=== PATIENT | female | born 1960 | race Caucasian/White ===

== ENCOUNTER 2018-08-23 17:03 | Inpatient (IN) | payer OTHER ==
--- OUTSIDE RECORDS SUMMARY | 2018-08-23 17:06 | XMS REPORT ---
:1960 [facility] Address [address] [place] [address] [address] Care Team Providers Name Role Phone DR CALDERON NAPIER Unavailable Unavailable Problems This patient has no known problems. Allergies, Adverse Reactions, Alerts This patient has no known allergies or adverse reactions. Medications This patient has no known medications. Encounters Start End Encounter Admission Attending Care Care Encounter Date/Time Date/Time Type Type Clinicians Facility Department ID 2017-11-14 Inpatient CALDERON MARTINEZ [facility] [id number] 09:00:00
--- OUTSIDE RECORDS SUMMARY | 2018-08-23 17:06 | XMS REPORT | Continuity of Care Document ---
:1960 Author Organization Interface Problems Problem Status Onset Classification Date Comments Source Date Reported IDIOPATHIC Active [facility] ASE[facility] NECROSIS [address] [facility] OF LEFT FEMU Arthritis Active Problem 11/17/2017 [facility] Hypertension Active Problem 11/17/2017 [facility] Medications Medication Details Route Status Patient Ordering Order Source Instructions Provider Date propofol (ANES) Route: Inactive IV, Drug 018 Ortho form: and INJ, Spine ONCE, Stop date: 11/14/17 11:05:00 CDT lidocaine (ANES) Route: Inactive IV, Drug 018 Ortho form: and INJ, Spine ONCE, Stop date: 11/14/17 10:45:00 CDT propofol (ANES) Route: Inactive IV, Drug 018 Ortho form: and INJ, Spine ONCE, Stop date: 11/14/17 10:45:00 CDT fentaNYL (ANES) Route: Inactive IV, Drug 018 Ortho form: and INJ, Spine ONCE, Stop date: 11/14/17 10:23:00 CDT midazolam (ANES) Route: Inactive IV, Drug 018 Ortho form: and SOLN, Spine ONCE, Stop date: 11/14/17 10:23:00 CDT Lactated Ringers Route: Inactive Injection IV (ANES) IV, Total 018 Ortho 1000 mL Volume: and 1,000, Spine Start date: 11/14/17 10:03:00 CDT, Stop date: 11/14/17 11:03:00 CDT Lactated Ringers IV 1,000 mL, No Longer 1,000 mL Rate: 40 Active 018 Ortho ml/hr, and Infuse Spine over: 25 hr, Route: IV, Dosing Weight 78.182 kg, Total Volume: 1,000, Start date: 11/14/17 8:45:00 CDT, Duration: 30 day, Stop date: 05/13/18 8:44:00 CDT, 1.95, m2 Tums 500 mg, Active CHEW, 018 Ortho Daily, 0 and Refill(s) Spine Advil PO, Q6H, Active MH 0 018 Ortho Refill(s) and Spine Aspirin 325 MG Oral 975 mg=3 Active Tablet tab, PO, 018 Ortho Q4H, PRN and Pain, # Spine 120 tab, 0 Refill(s) Acetaminophen 325 MG 1 tab, Active MH / Hydrocodone PO, Q6H, 018 Ortho Bitartrate 10 MG Oral PRN for and Tablet [Norman 10/325] pain, # Spine 24 tab, 0 Refill(s) gabapentin 600 MG 600 mg=1 Active Oral Tablet tab, PO, 018 Ortho PRN, # and 270 tab, Spine 0 Refill(s) baclofen 10 mg oral 10 mg=1 Active tablet tab, PO, 018 Ortho TID, PRN and Spasms, # Spine 90 tab, 0 Refill(s) Amlodipine 10 MG Oral 10 mg=1 Active Tablet [Norvasc] tab, PO, 018 Ortho Daily, # and 30 tab, 1 Spine Refill(s) Hydrochlorothiazide 1 tab, Active MH 25 MG / Triamterene PO, 018 Ortho 37.5 MG Oral Tablet Daily, # and 15 tab, 0 Spine Refill(s) carvedilol 25 MG Oral 25 mg=1 Active Tablet [Coreg] tab, PO, 018 Ortho BID, # 60 and tab, 0 Spine Refill(s) Allergies, Adverse Reactions, Alerts Substance Category Reaction Severity Reaction Status Date Comments Source type Reported sulfa Assertion Drug Active rash MH drugs<sup>1 allergy Ortho </sup> and Spine quinapril<s Assertion Drug Active rash MH up>2</sup> allergy [facility] Immunizations Immunization Date Given Site Status Last Updated Comments Source Results Order Results Value Reference Date Interpretation Comments Source Name Range Vital Signs Vital Sign Value Date Comments Source Systolic (mm Hg) 131 11/14/2017 [facility] Diastolic (mm Hg) 69 11/14/2017 [facility] Respitory Rate 16 11/14/2017 [facility] Heart Rate 70 11/14/2017 [facility] Systolic (mm Hg) 126 11/14/2017 [facility] Diastolic (mm Hg) 61 11/14/2017 [facility] Heart Rate 71 11/14/2017 [facility] Respitory Rate 15 11/14/2017 [facility] Respitory Rate 12 11/14/2017 [facility] Heart Rate 72 11/14/2017 [facility] Systolic (mm Hg) 117 11/14/2017 [facility] Diastolic (mm Hg) 77 11/14/2017 [facility] BMI Calculated 25.51 11/14/2017 [facility] Weight 75 11/14/2017 [facility] Temperature Oral (F) 97.9 F 11/14/2017 [facility] Height 171.45 cm 11/12/2017 [facility] Encounters Location Location Encounter Encounter Reason Attending ADM DC Status Source Details Type Number For Provider Date Date Visit [id number] Marc Jefferson 11/14 11/15 [facility] /2017 [facility] Procedures Procedure Code Date Perfomer Comments Source Injection [id number] 11/14/2017 [facility] Hip [id number] 08/04/2015 right [facility] Ortho and replacement<sup>1</ Spine sup> Lumpectomy of [id number] 08/04/2015 right breast Ortho and breast<sup>2</sup> Spine Hysterectomy [id number] [facility]
[2018-08-23 18:15] LABS: Absolute Lymphocytes (CBC) 0.9 K/uL (0.7-4.9); Absolute Monocytes 1.5 K/uL (0.1-1.3); Absolute Neutrophil 6.7 K/uL (1.8-8.0); Basophils % 0.5 % (0-1.3); Eosinophils % 0.4 % (0-4.4); MPV 8.5 fL (7.6-11.3); Monocytes % 16.8 % (3.3-12.3); RBC Red Blood Cell Count 4.49 M/uL (3.86-4.86)
[2018-08-23 18:16] LABS: Protime INR 0.91
--- NOTE | 2018-08-23 18:38 | RAD REPORT ---
EXAM DESCRIPTION: CT - Head Brain Wo Cont - 08/23/2018 6:13 pm CLINICAL HISTORY: Weakness, dizziness, near syncope COMPARISON: None. TECHNIQUE: Axial 5 mm thick images of the head were obtained without IV contrast. All CT scans are performed using dose optimization technique as appropriate and may include automated exposure control or mA/KV adjustment according to patient size. FINDINGS: No intracranial hemorrhage, mass, edema or shift of mid-line structures. No acute infarcti on changes seen. No abnormal extra-axial fluid collections. Ventricles are normal. Mastoid air cells and visualized portions of the paranasal sinuses are clear. No acute bony findings. Minimal soft tissue prominence in the scalp fatty tissues posterior parietal. No fall or trauma histo ry noted. This could be scarring from a prior injury. This is not seen as significant. No air or fore ign body. IMPRESSION: Negative non-contrast CT head examination for acute or significant finding.
[2018-08-23 18:39] LABS: ALT/SGPT 15 U/L (12-78); AST/SGOT 14 U/L (15-37); Albumin 3.9 g/dL (3.4-5.0); Alkaline Phosphatase 126 U/L (45-117); BUN Blood Urea Nitrogen 27 mg/dL (7-18); Bicarbonate 35 mmol/L (21-32); Bilirubin Direct 0.1 mg/dL (0-0.2); Bilirubin Total 0.3 mg/dL (0.2-1.0); Glucose Level 124 mg/dL (74-106); Magnesium 2.3 mg/dL (1.8-2.4); NT PRO-BNP 108 pg/mL (<125); Protein, Total 7.9 g/dL (6.4-8.2); Troponin (Emerg Dept Use Only) < 0.02 ng/mL (0.0-0.045)
[2018-08-23 18:42] LABS: Potassium 2.6 mmol/L (3.5-5.1); Sodium Level 118 mmol/L (136-145)
--- NOTE | 2018-08-23 18:48 | EDPHYS ---
Physician Documentation [facility] Name: Carla Cohen Age: 57 yrs Sex: Female : 1960 Arrival Date: 08/23/2018 Time: 17:05 Bed 8 Private MD: Jewels Richardson ED Physician Michael Lei HPI: 08/23 18:02 This 57 yrs old Female presents to ER via Wheelchair with complaints of Fall tw4 Injury, Dizziness, Nausea. 18:02 Details of fall: The patient fell from an upright position, while standing, while tw4 walking. Onset: The symptoms/episode began/occurred 1 week(s) ago. Associated injuries: The patient sustained no obvious injury. Severity of symptoms: At their worst the symptoms were moderate, in the emergency department the symptoms are unchanged. The patient has not experienced similar symptoms in the past. Historical: - Allergies: 17:13 NKDA; aj - Home Meds: 17:13 carvedilol 25 mg Oral tab 1 tab 2 times per day [Active]; hydrocodone-acetaminophen aj 10-325 mg Oral tab every 6 hours [Active]; amlodipine 10 mg tab 1 tab once daily [Active]; doxazosin 2 mg oral tab 1 tab once daily [Active]; Potassium Chloride Oral [Active]; furosemide 20 mg Oral tab 1 tab once daily [Active]; meloxicam 7.5 mg oral tab 1 tab once daily [Active]; montelukast 10 mg Oral tab 1 tab once daily [Active]; - PMHx: 17:13 Hypertension; Arthritis; aj - PSHx: 17:13 Hysterectomy; cyst removal; Tonsillectomy; hip; aj - Immunization history:: Adult Immunizations up to date. - Social history:: Smoking status: Patient/guardian denies using tobacco. - Ebola Screening: : Patient negative for fever greater than or equal to 101.5 degrees Fahrenheit, and additional compatible Ebola Virus Disease symptoms Patient denies exposure to infectious person Patient denies travel to an Ebola-affected area in the 21 days before illness onset No symptoms or risks identified at this time. ROS: 18:02 Constitutional: Negative for fever, chills, and weight loss, Eyes: Negative for injury, tw4 pain, redness, and discharge, Cardiovascular: Negative for chest pain, palpitations, and edema, Respiratory: Negative for shortness of breath, cough, wheezing, and pleuritic chest pain, Abdomen/GI: Negative for abdominal pain, nausea, vomiting, diarrhea, and constipation. 18:02 Neuro: Positive for dizziness, Negative for altered mental status, gait disturbance, headache, hearing loss, numbness, seizure activity, speech changes, tinnitus, tremor. Exam: 18:02 Constitutional: This is a well developed, well nourished patient who is awake, alert, tw4 and in no acute distress. Head/Face: Normocephalic, atraumatic. Chest/axilla: Normal chest wall appearance and motion. Nontender with no deformity. No lesions are appreciated. Cardiovascular: Regular rate and rhythm with a normal S1 and S2. No gallops, murmurs, or rubs. Normal PMI, no JVD. No pulse deficits. Respiratory: Lungs have equal breath sounds bilaterally, clear to auscultation and percussion. No rales, rhonchi or wheezes noted. No increased work of breathing, no retractions or nasal flaring. Abdomen/GI: Soft, non-tender, with normal bowel sounds. No distension or tympany. No guarding or rebound. No evidence of tenderness throughout. 18:02 MS/ Extremity: Pulses equal, no cyanosis. Neurovascular intact. Full, normal range of motion. Neuro: Awake and alert, GCS 15, oriented to person, place, time, and situation. Cranial nerves II-XII grossly intact. Motor strength 5/5 in all extremities. Sensory grossly intact. Cerebellar exam normal. Normal gait. Vital Signs: 17:13 BP 91 / 60; Pulse 85; Resp 16; Temp 97.6; Pulse Ox 100% on R/A; Weight 74.84 kg; Height aj 5 ft. 7 in. (170.18 cm); 17:30 BP 113 / 78; Pulse 74; Resp 14; Pulse Ox 98% on R/A; Pain 8/10; ch 18:30 BP 98 / 76; Pulse 84; Resp 16; Pulse Ox 98% on R/A; Pain 8/10; ch 20:41 BP 115 / 71; Pulse 76; Resp 18; Pulse Ox 96% on R/A; tl2 17:13 Body Mass Index 25.84 (74.84 kg, 170.18 cm) aj 17:30 pt c/o chronic hip pain ch MDM: 17:18 Patient medically screened. tw4 18:02 Differential diagnosis: abrasion, closed head injury. Data reviewed: vital signs, tw4 nurses notes. Data interpreted: Pulse oximetry: Interpretation: normal. Test interpretation: by ED physician or midlevel provider: ECG. 08/23 17:50 Order name: Basic Metabolic Panel tw4 08/23 17:50 Order name: CBC with Diff tw4 08/23 17:50 Order name: LFT's tw4 08/23 17:50 Order name: Magnesium tw4 08/23 17:50 Order name: NT PRO-BNP tw4 08/23 17:50 Order name: PT-INR tw4 08/23 17:50 Order name: Troponin (emerg Dept Use Only) tw4 08/23 18:23 Order name: CBC with Automated Diff EDMS 08/23 18:25 Interpretation: Normal except: MCV 82.4; RDW 19.7. tw4 08/23 18:34 Order name: Protime (+INR); Complete Time: 18:48 EDMS 08/23 18:48 Interpretation: Within normal limits: PT 10.7. tw4 08/23 18:42 Order name: Basic Metabolic Panel; Complete Time: 18:49 EDMS 08/23 18:49 Interpretation: Normal except: K 2.6; NA 118; CL 71; CO2 35; GLUC 124; GFR 29; CRE tw4 1.79; BUN 27. 08/23 18:42 Order name: Liver (Hepatic) Function; Complete Time: 18:48 EDMS 08/23 18:48 Interpretation: Normal except: AST 14; ALK 126; GLOB 4.0; A/G 1.0. tw4 08/23 18:42 Order name: Troponin (Emerg Dept Use Only); Complete Time: 18:48 EDMS 08/23 18:48 Interpretation: Within normal limits: TROPED < 0.02. tw4 08/23 18:42 Order name: NT PRO-BNP; Complete Time: 18:48 EDMS 08/23 18:48 Interpretation: Within normal limits: NT PRO-BNP 108. tw4 08/23 18:42 Order name: Magnesium; Complete Time: 18:48 EDMS 08/23 18:48 Interpretation: Within normal limits. tw4 08/23 17:50 Order name: EKG; Complete Time: 17:51 tw4 08/23 17:50 Order name: Cardiac monitoring; Complete Time: 20:00 tw4 08/23 17:50 Order name: EKG - Nurse/Tech; Complete Time: 19:10 4 08/23 17:50 Order name: IV Saline Lock; Complete Time: 19:10 4 08/23 17:50 Order name: Labs collected and sent; Complete Time: 19:10 [facility] 08/23 17:50 Order name: O2 Per Protocol; Complete Time: 19:10 4 08/23 17:50 Order name: O2 Sat Monitoring; Complete Time: 19:10 tw4 08/23 17:50 Order name: CT Head Brain wo Cont tw 08/23 18:39 Order name: CT; Complete Time: 18:40 EDMS 08/23 18:41 Interpretation: No acute disease. [facility] 08/23 18:48 Order name: Urine Dipstick-Ancillary (obtain specimen); Complete Time: 20:36 [facility] 08/23 19:07 Order name: CBC Smear Scan [facility] 08/23 20:43 Order name: Urine Dipstick--Ancillary (enter results) 08/23 20:50 Order name: Urine Dipstick-Ancillary ED[facility] EC:02 Rhythm is regular. QRS [place] is Normal. AL interval is normal. QRS interval is normal. tw4 QT interval is normal. No Q waves. T waves are Inverted in leads V1, V2, V3. No ST changes noted. Clinical impression: Abnormal EKG without significant change. Interpreted by me. Reviewed by me. Administered Medications: 20:09 Not Given (Do not have in hospital): NS 0.9% with KCl 40 mEq/L 1000 ml IV at calculated tl2 rate continuous Disposition: 08/23/18 18:47 Hospitalization ordered by Jesus Lord for Inpatient Admission. Preliminary diagnosis are Hypo-osmolality and hyponatremia, Hypokalemia, Dizziness and giddiness. - Bed requested for Telemetry/MedSurg (Inpatient). - Status is Inpatient Admission. ea - Condition is Fair. - Problem is new. - Symptoms are unchanged. UTI on Admission? No Signatures: Dispatcher [employer] [facility] Amber Sutton RN RN mw Myers, Amanda, RN RN aj Antunez, Elena, RN RN ea Wadley, Terrence, MD MD tw4 Gilliam, Sharon RN tl2 Corrections: (The following items were deleted from the chart) 20:00 18:47 Hospitalization Ordered by Jesus Lord MD for Inpatient Admission. Preliminary mw diagnosis is Hypo-osmolality and hyponatremia; Hypokalemia; Dizziness and giddiness. Bed requested for Telemetry/MedSurg (Inpatient). Status is Inpatient Admission. Condition is Fair. Problem is new. Symptoms are unchanged. UTI on Admission? No. tw4 21:26 20:00 08/23/2018 18:47 Hospitalization Ordered by Jesus Lord MD for Inpatient ea Admission. Preliminary diagnosis is Hypo-osmolality and hyponatremia; Hypokalemia; Dizziness and giddiness. Bed requested for Telemetry/MedSurg (Inpatient). Status is Inpatient Admission. Condition is Fair. Problem is new. Symptoms are unchanged. UTI on Admission? No. mw
--- NOTE | 2018-08-23 18:48 | ER ---
Nurse's Notes [facility] Name: Carla Cohen Age: 57 yrs Sex: Female : 1960 Arrival Date: 08/23/2018 Time: 17:05 Bed 8 Private MD: Jewels Richardson Diagnosis: Hypo-osmolality and hyponatremia;Hypokalemia;Dizziness and giddiness Presentation: 08/23 17:10 Presenting complaint: Patient states: Dizziness with nausea and vomiting for 4 days. aj Worse with movement. Transition of care: patient was not received from another setting of care. Onset of symptoms was August 19, 2018. Risk Assessment: Do you want to hurt yourself or someone else? Patient reports no desire to harm self or others. Initial Sepsis Screen: Does the patient meet any 2 criteria? No. Patient's initial sepsis screen is negative. Does the patient have a suspected source of infection? No. Patient's initial sepsis screen is negative. Care prior to arrival: None. 17:10 Method Of Arrival: Wheelchair aj 17:10 Acuity: DAI 3 aj Triage Assessment: 17:13 General: Appears in no apparent distress. comfortable, Behavior is calm, cooperative, aj appropriate for age. Pain: Denies pain. Neuro: Level of Consciousness is awake, alert, obeys commands, Oriented to person, place, time, situation, Appropriate for age Ase Certified Technician are equal bilaterally Moves all extremities. Speech is normal, Facial symmetry appears normal. Respiratory: Airway is patent Respiratory effort is even, unlabored, Respiratory pattern is regular, symmetrical. Derm: Skin is intact, is healthy with good turgor, Skin is pink, warm \T\ dry. normal. Historical: - Allergies: 17:13 NKDA; aj - Home Meds: 17:13 carvedilol 25 mg Oral tab 1 tab 2 times per day [Active]; hydrocodone-acetaminophen aj 10-325 mg Oral tab every 6 hours [Active]; amlodipine 10 mg tab 1 tab once daily [Active]; doxazosin 2 mg oral tab 1 tab once daily [Active]; Potassium Chloride Oral [Active]; furosemide 20 mg Oral tab 1 tab once daily [Active]; meloxicam 7.5 mg oral tab 1 tab once daily [Active]; montelukast 10 mg Oral tab 1 tab once daily [Active]; - PMHx: 17:13 Hypertension; Arthritis; aj - PSHx: 17:13 Hysterectomy; cyst removal; Tonsillectomy; hip; aj - Immunization history:: Adult Immunizations up to date. - Social history:: Smoking status: Patient/guardian denies using tobacco. - Ebola Screening: : Patient negative for fever greater than or equal to 101.5 degrees Fahrenheit, and additional compatible Ebola Virus Disease symptoms Patient denies exposure to infectious person Patient denies travel to an Ebola-affected area in the 21 days before illness onset No symptoms or risks identified at this time. Screenin:30 Abuse screen: Denies threats or abuse. Denies injuries from another. Nutritional ch screening: No deficits noted. Tuberculosis screening: No symptoms or risk factors identified. Fall Risk Fall in past 12 months (25 points). Secondary diagnosis (15 points) Ambulatory Aid- None/Bed Rest/Nurse Assist (0 pts). Gait- Weak (10 pts.). Mental Status- Oriented to own ability (0 pts). Total Garcia Fall Scale indicates Low Risk Score (25-44 pts). Fall prevention measures have been instituted. Side Rails Up X 2 Frequent Obs/Assesments occuring Family Present and informed to notify staff if they need to leave bedside As available Patient and Family Educated on Fall Prevention Program and strategies. Assessment: 17:30 General: Appears in no apparent distress. comfortable, Behavior is calm, cooperative, ch quiet. Pain: Complains of pain in left hip Pain currently is 8 out of 10 on a pain scale. Pain began years ago. Neuro: Level of Consciousness is awake, alert, obeys commands, Oriented to person, place, time, situation, Ase Certified Technician are equal bilaterally Moves all extremities. Gait is unsteady, Speech is normal, Facial symmetry appears normal, Facial symmetry: tongue is midline, Pupils are PERRLA. Respiratory: No deficits noted. GI: Reports nausea, vomiting. : No signs and/or symptoms were reported regarding the genitourinary system. Derm: Skin is pink, warm \T\ dry. Musculoskeletal: Circulation, motion, and sensation intact. Capillary refill < 3 seconds, in bilateral fingers. Reports pain in left hip. 18:30 Reassessment: Patient appears in no apparent distress at this time. Patient and/or ch family updated on plan of care and expected duration. Pain level reassessed. Patient is alert, oriented x 3, equal unlabored respirations, skin warm/dry/pink. pt asks if she can take her home Ariel. physician states he will be in the room soon to discuss results with pt. 20:25 Reassessment: received VO from Dr. Sheets to give 40 meq of potassium in rider bags. tl2 Order placed in [employer] and will communicate with nurse. Vital Signs: 17:13 BP 91 / 60; Pulse 85; Resp 16; Temp 97.6; Pulse Ox 100% on R/A; Weight 74.84 kg; Height aj 5 ft. 7 in. (170.18 cm); 17:30 BP 113 / 78; Pulse 74; Resp 14; Pulse Ox 98% on R/A; Pain 8/10; ch 18:30 BP 98 / 76; Pulse 84; Resp 16; Pulse Ox 98% on R/A; Pain 8/10; ch 20:41 BP 115 / 71; Pulse 76; Resp 18; Pulse Ox 96% on R/A; tl2 17:13 Body Mass Index 25.84 (74.84 kg, 170.18 cm) aj 17:30 pt c/o chronic hip pain ED Course: 17:05 Patient arrived in ED. mr 17:06 Jewels Richardson MD is Private Physician. mr 17:11 Triage completed. aj 17:13 Arm band placed on left wrist. Patient placed in an exam room. aj 17:18 Christin Jarrell, RN is Primary Nurse. ch 17:18 Michael Lei MD is Attending Physician. tw4 17:30 No apparent distress. Resting quietly. ch 17:30 Patient has correct armband on for positive identification. Bed in low position. Call light in reach. Side rails up X2. Adult w/ patient. Pulse ox on. NIBP on. Warm blanket given. 18:00 No provider procedures requiring assistance completed. Inserted saline lock: 22 gauge ch in left forearm, using aseptic technique. Blood collected. 18:07 CT completed. Patient moved to CT via stretcher. Patient moved back from CT. bq 18:42 Notified ED physician of a critical lab result(s). 118 Na, 2.6 K, 71 Cl. aa5 18:46 Jesus Lord MD is Hospitalizing Provider. tw4 19:10 Report given to Susnaa. ch 21:05 Patient admitted, IV remains in place. ea Administered Medications: 20:09 Not Given (Do not have in hospital): NS 0.9% with KCl 40 mEq/L 1000 ml IV at calculated tl2 rate continuous Outcome: 18:47 Decision to Hospitalize by Provider. tw4 19:00 Instructed on the need for admit. ea 21:05 Condition: stable ea 21:26 Patient left the ED. ea Signatures: Christin Jarrell, RN Ansley Wallace ch, RN Anna Mac mr Sashacris, Jhoana Robles, RN RN aa5 Sharon Gilliam RN JOSE JUAN tl2 Kayla Miranda RN Michael Mancia ea, MD MD tw4 Corrections: (The following items were deleted from the chart) 21:05 19:00 Condition: stable ea ea
[2018-08-23 19:06] LABS: Anisocytosis 1+; Blood Morphology Comment NOTED (NOT SEEN); Platelet Estimate ADEQ; Urine White Blood Cell Casts OK
[2018-08-23] MEDS ORDERED: ONDANSETRON 4 MG/2 ML VIAL IV PRN (19:56)
[2018-08-23] MEDS ORDERED: MORPHINE 2 MG/ML SYR IV PRN (19:56)
[2018-08-23] MEDS ORDERED: ACETAMINOPHEN 500 MG TAB PO PRN (19:56)
[2018-08-23] MEDS ORDERED: NA CHLORIDE 0.9% 500 ML ONE (20:48)
[2018-08-23 20:49] LABS: Urine Blood NEGATIVE (NEG); Urine Glucose NEGATIVE (NEG); Urine Protein NEGATIVE (NEG); Urine pH 5.5 (5.0-7.0)
[2018-08-23] MEDS ORDERED: KCL 20 MEQ/100 mL IVPB 20 MEQ/100 ML BAG IV ONE (20:49)
[2018-08-23] MEDS ORDERED: POTASSIUM CL 40 MEQ in NA CHLORIDE 0.9% 500 ML IV SCH (21:00)
[2018-08-23] MEDS: NA CHLORIDE 0.9% 1,000 ML IV SCH (21:20)
[2018-08-24 01:12] LABS: Potassium 2.7 mmol/L (3.5-5.1)
[2018-08-24] MEDS: KCL 20 MEQ/100 mL IVPB 20 MEQ/100 ML BAG IV SCH ×2 (01:58→03:50)
[2018-08-24 04:03] LABS: Urine Appearance CLEAR; Urine Bilirubin NEGATIVE (NEG); Urine Blood NEGATIVE (NEG); Urine Color YELLOW; Urine Glucose NEGATIVE (NEG); Urine Protein NEGATIVE (NEG); Urine Urobilinogen 0.2 mg/dL (0.2-1.0)
[2018-08-24 04:04] LABS: Urine Microscopic Reflex NO UMIC
[2018-08-24] MEDS: NA CHLORIDE 0.9% 1,000 ML IV SCH ×2 (06:00→11:09)
[2018-08-24 06:17] LABS: Absolute Lymphocytes (CBC) 1.8 K/uL (0.7-4.9); Absolute Monocytes 1.2 K/uL (0.1-1.3); Absolute Neutrophil 2.6 K/uL (1.8-8.0); Basophils % 0.3 % (0-1.3); Eosinophils % 1.7 % (0-4.4); Hematocrit 31.2 % (36.0-45.0); Lymphocytes % 32.2 % (15.3-44.8); MPV 8.3 fL (7.6-11.3); Monocytes % 20.7 % (3.3-12.3); RBC Red Blood Cell Count 3.76 M/uL (3.86-4.86)
[2018-08-24 06:35] LABS: Potassium 2.9 mmol/L (3.5-5.1)
[2018-08-24 06:51] LABS: Anisocytosis 1+; Blood Morphology Comment NOTED (NOT SEEN); Platelet Estimate ADEQ; Urine White Blood Cell Casts OK
[2018-08-24] MEDS ORDERED: MELOXICAM 7.5 MG TAB PO PRN (07:00)
[2018-08-24] MEDS ORDERED: CARVEDILOL 25 MG TAB PO SCH (07:05)
--- NOTE | 2018-08-24 07:06 | P.HP ---
Certification for Inpatient Patient admitted to: Inpatient With expected LOS: >2 Midnights Patient will require the following post-hospital care: None Practitioner: I am a practitioner with admitting privileges, knowledge of patient current condition, hospital course, and medical plan of care. Services: Services provided to patient in accordance with Admission requirements found in Title 42 Section 412.3 of the Code of Federal Regulations Patient History Date of Service: 08/23/18 Reason for admission: Hyponatremia; status post fall History of Present Illness: Patient is a 57-year-old female came to the hospital with feeling dizzy and lightheaded. She was recently started on a new diuretic. She apparently was taking triamterene and this was changed over to a Lasix with oral potassium supplementation. Patient has been taking her medication as prescribed. However she states she started getting lightheaded. Patient also has cramps in her legs with the right leg greater than the left. Her symptoms were gradually worsening. She came to the hospital for further evaluation. In the emergency room, she was found to have severe hyponatremia along with hypokalemia. She was started on supplementation with normal saline and IVPB of KCL. Will check labs every 6 hr. Monitor labs closely and try not to correct the sodium too quickly. Allergies BROOKE Inhibitors Allergy (Verified 08/23/18 21:55) Anaphylaxis Sulfa (Sulfonamide Antibiotics) Allergy (Verified 08/23/18 21:55) Itching Home Medications: Amlodipine [Norvasc*] 1 tab PO DAILY 08/23/18 Carvedilol [Coreg] 25 mg PO BID 08/23/18 Doxazosin [Cardura*] 1 tab PO DAILY 6PM 08/23/18 Hydrocodone/Acetaminophen [Hydrocodone-Acetamin 10-325 mg] 1 tab PO TID PRN Meloxicam 7.5 mg PO DAILY PRN 08/23/18 - Past Medical/Surgical History Has patient received pneumonia vaccine in the past: No Diabetic: No -: HTN -: arthritis -: HYSTERECTOMY -: Appendectomy -: TONSILLECTOMY -: right hip replacement 2014 - Family History Father Family History: Reviewed- Non-Contributory - Social History Smoking Status: Former smoker Alcohol use: Yes CD- Drugs: No Caffeine use: Yes Place of Residence: Home Review of Systems 10-point ROS is otherwise unremarkable Physical Examination - Vital Signs Temperature: 97.2 F Blood Pressure: 105/64 Pulse: 73 Respirations: 16 Pulse Ox (%): 97 - Physical Exam General: Alert, In no apparent distress, Oriented x3 HEENT: Atraumatic, PERRLA, Mucous membr. moist/pink, EOMI, Sclerae nonicteric Neck: Supple, 2+ carotid pulse no bruit, No LAD, Without JVD or thyroid abnormality Respiratory: Clear to auscultation bilaterally, Normal air movement Cardiovascular: Regular rate/rhythm, Normal S1 S2, No murmurs Gastrointestinal: Normal bowel sounds, Soft and benign, Non-distended, No tenderness Musculoskeletal: No clubbing, No swelling, No tenderness Integumentary: No rashes Neurological: Normal gait, Normal speech, Normal strength at 5/5 x4 extr, Normal tone, Sensation intact, Cranial nerves 3-12 intact, Normal affect Lymphatics: No axilla or inguinal lymphadenopathy - Studies Laboratory Data (last 24 hrs) 08/23/18 18:00: PT 10.7, INR 0.91 08/23/18 18:00: WBC 9.2, Hgb 12.5, Hct 37.0, Plt Count 280 08/23/18 18:00: Sodium 118 L*, Potassium 2.6 L*, BUN 27 H, Creatinine 1.79 H, Glucose 124 H, Magnesium 2.3, Total Bilirubin 0.3, AST 14 L, ALT 15, Alkaline Phosphatase 126 H Assessment & Plan - Problems (Diagnosis) (1) Hypokalemia Current Visit: Yes Status: Acute (2) HTN (hypertension) Current Visit: No Status: Acute (3) Hyponatremia Current Visit: No Status: Chronic - Plan Plan: 1. Continue with normal saline at 100 cc an hr along with potassium supplementation. 2. Check BMP every 6 hr 3. Adjust patient's medications going forward and will possibly need to choose a different diuretic 4. Strict blood pressure control 5. Physical therapy evaluation 6. GI and DVT prophylaxis Discharge Plan: Home Plan to discharge in: Greater than 2 days - Advance Directives Does patient have a Living Will: No Does patient have a Durable POA for Healthcare: No - Code Status/Comfort Care Code Status Assessed: Yes Code Status: Full Code Critical Care: No Time Spent Managing PTS Care (In Minutes): 50
[2018-08-24] MEDS ORDERED: MORPHINE 4 MG/ML SYR IV PRN (07:19)
[2018-08-24] MEDS ORDERED: HYDRALAZINE HCL 20 MG/ML VIAL IV PRN (07:42)
[2018-08-24] MEDS ORDERED: POTASSIUM CL 40 MEQ in NA CHLORIDE 0.9% 500 ML IV SCH (08:00)
[2018-08-24] MEDS ORDERED: PNEUMOCOCCAL VACCINE 0.5 ML IMVAC ONE (08:00)
[2018-08-24] MEDS ORDERED: AMLODIPINE 10 MG TAB PO SCH (09:00)
--- NOTE | 2018-08-24 09:52 | RAD REPORT ---
EXAM DESCRIPTION: US - Renal Ultrasound-Complete - 08/24/2018 9:27 am CLINICAL HISTORY: renal insufficiency COMPARISON: None. FINDINGS: The right kidney measures 10 cm with an increased echotexture. The left kidney measures 10 cm with an increased echotexture. 2 centimeters cyst Hydronephrosis is not seen. No gross abnormality of bladder is seen IMPRESSION: Increased renal echotexture consistent with parenchymal disease 2 centimeter left renal cyst
--- NOTE | 2018-08-24 11:44 | EKG ---
Test Date: 2018-08-23 Test Time: 22:16:21 Instructor Physical: RT MEASUREMENT RESULTS: Intervals: Rate: 73 OK: 206 QRSD: 100 QT: 414 QTc: 456 [place]: P: 59 OK: 206 QRS: 35 T: 27 INTERPRETIVE STATEMENTS: Normal sinus rhythm T wave abnormality, consider anterior ischemia Abnormal ECG Compared to ECG 08/23/2018 17:54:27 T-wave abnormality now present ST (T wave) deviation no longer present Possible ischemia still present Electronically Signed On 08-24-18 11:42:52 RENOVATOR MACHINE OPERATOR by Sherman Simon
--- NOTE | 2018-08-24 11:46 | EKG ---
Test Date: 2018-08-23 Test Time: 17:54:27 Instructor [employer]: GEOVANNI MEASUREMENT RESULTS: Intervals: Rate: 72 SC: 200 QRSD: 92 QT: 416 QTc: 455 [place]: P: 50 SC: 200 QRS: 11 T: 20 INTERPRETIVE STATEMENTS: Normal sinus rhythm ST & T wave abnormality, consider inferior ischemia ST & T wave abnormality, consider anterior ischemia Abnormal ECG Compared to ECG 06/04/2018 14:30:30 ST (T wave) deviation now present Possible ischemia now present First degree AV block no longer present Electronically Signed On 08-24-18 11:43:05 CLUSTER BORE OPERATOR by Sherman Simon
[2018-08-24 13:29] LABS: Potassium 3.2 mmol/L (3.5-5.1)
--- NOTE | 2018-08-24 13:53 | P.PN ---
Subjective Date of Service: 08/24/18 Primary Care Provider: Dr. Davis Chief Complaint: Hyponatremia; status post fall Subjective: Improving Physical Examination - Vital Signs Temperature: 98.2 F Blood Pressure: 119/61 Pulse: 78 Respirations: 18 Pulse Ox (%): 96 - Physical Exam General: Alert, In no apparent distress, Oriented x3 HEENT: Atraumatic Neck: Supple Respiratory: Clear to auscultation bilaterally, Normal air movement Cardiovascular: Normal pulses, Regular rate/rhythm Gastrointestinal: Normal bowel sounds, Soft and benign, Non-distended Musculoskeletal: No erythema, No tenderness, No warmth Integumentary: No tenderness/swelling, No erythema, No warmth, No cyanosis Neurological: Normal speech, Normal strength at 5/5 x4 extr, Normal tone, Normal affect - Studies Laboratory Data (last 24 hrs) 08/23/18 18:00: PT 10.7, INR 0.91 08/23/18 18:00: WBC 9.2, Hgb 12.5, Hct 37.0, Plt Count 280 08/23/18 18:00: Sodium 118 L*, Potassium 2.6 L*, BUN 27 H, Creatinine 1.79 H, Glucose 124 H, Magnesium 2.3, Total Bilirubin 0.3, AST 14 L, ALT 15, Alkaline Phosphatase 126 H Medications List Reviewed: Yes Assessment & Plan Discharge Plan: Home Plan to discharge in: 24 Hours Physician Review Additional Text: Impression: Presyncope secondary to Hypokalemia, hyponatremia with noted acute on chronic renal disease stage III Hypertension with hypotension Plan: Presyncope secondary to Hypokalemia, hyponatremia with noted acute on chronic renal disease stage III: Continue with fluids and electrolyte replacement. Renal ultrasound shows some renal dysfunction. Will consult nephrology for further recommendation. Will discontinue triamterene hydrochlorothiazide. Medications will need to be adjusted. Hypertension with hypotension: Will hold all blood pressure medication at this time due to low blood pressure. Her medications have been adjusted recently. May need to make further adjustments in medication. Will monitor blood pressure closely. Will provide IV medication as needed. Time Spent Managing Pts Care (In Minutes): 55
[2018-08-24] MEDS ORDERED: D5W 1,000 ML IV SCH (15:00)
[2018-08-24] MEDS ORDERED: POTASSIUM CL 40 MEQ in NA CHLORIDE 0.9% 500 ML IV ONE (15:00)
[2018-08-24] MEDS: ENOXAPARIN 30 MG/0.3 ML SQ SCH (17:00)
[2018-08-24] MEDS: TRAMADOL HCL 50 MG TAB PO PRN (17:20)
[2018-08-24] MEDS ORDERED: DOXAZOSIN 2 MG TAB PO SCH (18:00)
[2018-08-24 18:36] LABS: Potassium 2.7 mmol/L (3.5-5.1)
[2018-08-24] MEDS ORDERED: POTASSIUM 25 MEQ EFFERV TAB PO ONE (21:29)
[2018-08-24] MEDS: D5W 1,000 ML IV SCH (22:38)
[2018-08-25] MEDS: TRAMADOL HCL 50 MG TAB PO PRN ×3 (00:07→20:57)
[2018-08-25 00:19] LABS: Potassium 4.4 mmol/L (3.5-5.1)
[2018-08-25] MEDS ORDERED: DESMOPRESSIN 4 MCG/ML AMP SQ ONE (02:00)
--- NOTE | 2018-08-25 02:56 | CON ---
Date of Consultation: 08/24/2018 Chief Complaint: Hyponatremia, hypo-osmolar. History Of Present Illness: The patient presented to the hospital last night and was found to have s evere hyponatremia. The patient came to the hospital because of dizziness or lightheadedness. She d enies confusion or syncope. She recently was started on new diuretic. Apparently, she was taking tr iamterene, and this was changed to Lasix along with potassium supplements. According to the patient, occasionally she takes a nonsteroidal anti-inflammatory medication. She has history of alcohol inta ke. She states that she drinks up to 2 drinks per day on occasion. The patient was complaining of presyncopal episodes, lightheadedness, and cramps in the legs. Becaus e of worsening of above symptoms, the patient decided to come to the emergency room. The patient was found to have hypokalemia and severe hyponatremia. Hyponatremia, severe. The patient was found to have an electrolytes abnormalities including hypokale ana laura and received potassium replacement. Allergies: BROOKE INHIBITOR. SHE HAS ANAPHYLAXIS. SULFONAMIDE ANTIBIOTICS, ALLERGIC AND CAUSING ITCHI NG. Home Medications: Amlodipine, carvedilol 25 mg twice a day, doxazosin 1 mg daily, hydrocodone, and m eloxicam 7.5 mg daily. Past Medical History: Hypertension, arthritis, hysterectomy, appendectomy, tonsillectomy, and right hip replacement. Family History: Hypertension. Social History: No tobacco. No alcohol. No illicit drugs. Physical Examination: General: The patient is awake, alert. Follows commands. Eyes: Anicteric sclerae. EOMI. Vital Signs: Blood pressure 105/64, heart rate 73, respiratory rate 16, pulse oximetry 97%. Ears, Nose, Mouth and Throat: Oral mucosa moist. No pallor. Neck: Supple. No JVD. No bruits. Lungs: Clear to auscultation bilaterally. Heart: S1, S2. No pericardial friction rub. Abdomen: Soft, benign, nontender. No rebound. No guarding. Extremities: No edema. No clubbing. No cyanosis. Laboratory Data: Sodium 118, potassium 2.6, BUN 27, creatinine 1.79, glucose 124, and magnesium 2.3. Total bilirubin 0.3, AST 126. Impression And Plan: 1.Severe hypokalemia. The patient received replacement. 2.Hyponatremia. The patient is on normal saline infusion. Plan is to adjust IV fluids to obtain gr adual correction of hyponatremia. 3.Hypokalemia. Plan is to check magnesium level to rule out magnesemia. The patient likely develop ed hyponatremia secondary to multiple electrolyte abnormalities including possible hypomagnesemia. 4.Hyponatremia, hypo-osmolar. Questionable syndrome of inappropriate antidiuretic hormone. The pat ient will avoid nonsteroidal anti-inflammatory medication. The patient will avoid hydrochlorothiazid e. 5.Hypertension. Blood pressure is controlled. Continue carvedilol. 6.Fatigue and dizziness. The patient is feeling better. Adjust fluids for replacement as needed an d monitor sodium level and adjust treatment for gradual correction. LILA/KVNG Voice ID: [id number] Report ID: [id number]
[2018-08-25] MEDS: D5W 1,000 ML IV SCH (04:50)
[2018-08-25 06:25] LABS: Absolute Lymphocytes (CBC) 1.8 K/uL (0.7-4.9); Absolute Monocytes 0.9 K/uL (0.1-1.3); Absolute Neutrophil 2.9 K/uL (1.8-8.0); Basophils % 0.7 % (0-1.3); Hematocrit 27.7 % (36.0-45.0); Lymphocytes % 30.5 % (15.3-44.8); MPV 8.4 fL (7.6-11.3); Monocytes % 15.9 % (3.3-12.3); RBC Red Blood Cell Count 3.26 M/uL (3.86-4.86)
[2018-08-25 06:47] LABS: Magnesium 1.9 mg/dL (1.8-2.4); Phosphorus 1.6 mg/dL (2.5-4.9); Thyroid Stimulating Hormone 0.495 uIU/mL (0.360-3.740)
[2018-08-25 08:05] LABS: Magnesium 1.9 mg/dL (1.8-2.4)
[2018-08-25 08:10] LABS: Potassium 2.5 mmol/L (3.5-5.1)
[2018-08-25] MEDS ORDERED: POTASSIUM CL SA 10 MEQ TAB PO ONE ×2 (08:12→15:00)
[2018-08-25 08:16] LABS: Urine Appearance CLEAR; Urine Bilirubin NEGATIVE (NEG); Urine Blood NEGATIVE (NEG); Urine Color YELLOW; Urine Glucose NEGATIVE (NEG); Urine Protein NEGATIVE (NEG); Urine Specific Gravity <=1.005 (1.005-1.030); Urine Urobilinogen 0.2 mg/dL (0.2-1.0); Urine pH 7.5 (5.0-7.0)
[2018-08-25 08:21] LABS: UR MICROALBUMIN < 0.5 mg/dL (< 1.9)
[2018-08-25 08:35] LABS: Urine Bacteria NONE SEEN /HPF (<20); Urine Culture Reflex Order NOT NEEDED; Urine RBC <5 /HPF (NONE SEEN)
[2018-08-25 08:41] LABS: Ferritin 23.4 ng/mL (8-388)
[2018-08-25] MEDS ORDERED: POTASS/SODIUM PHOSPHATE 1 PKT POWD.PACK PO ONE (09:00)
--- NOTE | 2018-08-25 09:25 | P.PN ---
Subjective Date of Service: 08/25/18 Primary Care Provider: Dr. Davis Chief Complaint: Hyponatremia; status post fall Subjective: Doing well Physical Examination - Vital Signs Temperature: 97.2 F Blood Pressure: 144/69 Pulse: 68 Respirations: 17 Pulse Ox (%): 97 - Physical Exam General: Alert, In no apparent distress, Oriented x3, Cooperative HEENT: Atraumatic Neck: Supple Respiratory: Clear to auscultation bilaterally, Normal air movement Cardiovascular: Normal pulses, Regular rate/rhythm Gastrointestinal: Normal bowel sounds, Soft and benign, Non-distended, No masses , No rebound, No guarding Musculoskeletal: No erythema, No tenderness, No warmth Integumentary: No erythema, No warmth, No cyanosis Neurological: Normal speech, Normal strength at 5/5 x4 extr, Normal tone, Normal affect - Studies Medications List Reviewed: Yes Assessment & Plan Discharge Plan: Home Plan to discharge in: 48 Hours Physician Review Additional Text: Impression: Presyncope secondary to Hypokalemia, hyponatremia with noted acute on chronic renal disease stage III Hypertension with hypotension Anemia with iron deficiency Plan: Presyncope secondary to Hypokalemia, hyponatremia with noted acute on chronic renal disease stage III: Nephrology consulted. Nephrology continues to adjust IV fluids for slow correction of hyponatremia. Continue with replacement of potassium. Continue to monitor renal function closely. Renal ultrasound shows some renal dysfunction. Patient likely with chronic disease. Patient has been taking NSAIDs at home. Recommend to discontinue NSAIDs, triamterene hydrochlorothiazide and other medication that will interfere with hyponatremia and hypokalemia. Will continue to monitor and follow with nephrology. Hypertension with hypotension: Blood pressure slightly elevated today. Will start hydralazine 25 mg 1 pill twice daily. Will continue monitor and adjust. Anemia with iron deficiency: Will start iron supplementation. Will monitor lab closely. Time Spent Managing Pts Care (In Minutes): 55
[2018-08-25 12:10] LABS: Potassium 2.8 mmol/L (3.5-5.1)
[2018-08-25] MEDS ORDERED: INFLUENZA VACCINE (for 3y+) 0.5 ML DOSE IMVAC ONE (13:00)
--- NOTE | 2018-08-25 13:55 | ECHO ---
HEIGHT: 5 ft 7 in WEIGHT: 156 lb 11.2 oz DATE OF STUDY: 08/24/[address]: Rigo Cummings DO 2-DIMENSIONAL: YES M.MODE: YES DOPPLER: YES COLOR FLOW: YES TDS: NO PORTABLE: NO DEFINITY: NO BUBBLE STUDY: NO DIAGNOSIS: EVALUATED FOR CONGESTIVE HEART FAILURE CARDIAC HISTORY: CATHERIZATION: NO SURGERY: NO PROSTHETIC VALVE: NO PACEMAKER: NO MEASUREMENTS (cm) DIASTOLIC (NORMALS) SYSTOLIC (NORMALS) IVSd (0.6-1.2) LA Diam (1.9-4.0) LVEF 55-60% LVIDd (3.5-5.7) LVIDs (2.0-3.5) %FS % LVPWd (0.6-1.2) Ao Diam (2.0-3.7) 2 DIMENSIONAL ASSESSMENT: RIGHT ATRIUM: NORMAL LEFT ATRIUM: NORMAL RIGHT VENTRICLE: NORMAL LEFT VENTRICLE: NORMAL TRICUSPID VALVE: NORMAL MITRAL VALVE: NORMAL PULMONIC VALVE: NORMAL AORTIC VALVE: NORMAL PERICARDIAL EFFUSION: NONE AORTIC ROOT: NORMAL LEFT VENTRICULAR WALL MOTION: NORMAL DOPPLER/COLOR FLOW: NORMAL COMMENTS: TECHNICALLY DIFFICULT STUDY. GROSSLY NORMAL LEFT VENTRICULAR EJECTION FRACTION AND LEFT VENTRICLE SIZE. NO EFFUSION. NO WALL MOTION ABNORMALITY. TECHNOLOGIST: Camacho ORNELAS
[2018-08-25] MEDS ORDERED: POTASSIUM CL 40 MEQ in NA CHLORIDE 0.9% 500 ML IV SCH (15:00)
[2018-08-25] MEDS ORDERED: MAGNESIUM SULFATE 1 gm IVPB 1 GM/100 ML BAG IV ONE (15:00)
[2018-08-25] MEDS: HYDROCODONE/APAP 10/325 TAB PO PRN (18:00)
[2018-08-25] MEDS: ENOXAPARIN 30 MG/0.3 ML SQ SCH (18:01)
[2018-08-25] MEDS ORDERED: NA CHLORIDE 0.9% 250 ML ONE (20:16)
--- NOTE | 2018-08-25 20:44 | PN ---
Date of Progress Note: 08/25/2018 Subjective: The patient was admitted with symptomatic hyponatremia, altered mental status. The talya ent apparently had hip fracture. Status post repair over the night. Apparently her hyponatremia was secondary to nonsteroid intake and hydrochlorothiazide with triamterene. The patient was started on IV hydration. Sodium has been corrected, then the patient took her medication again from her own, s odium bounced back for that reason. The patient's D5 was discontinued to avoid overcorrection and gi augustus DDAVP and the patient bounced down again to 122. Persistent hypokalemia, the patient received king pplement. Physical Examination: Vital Signs: When I saw the patient, blood pressure 125/76, pulse of 73. The patient had urine outp ut today 550. Chest: Clear to auscultation. Heart: S1, S2 regular. Abdomen: Soft, nontender. Extremity: Trace edema. Laboratory Data: Sodium 122, potassium 2.8, chloride 82, carbon dioxide 33, BUN 13, creatinine 0.8, GFR is 73, calcium 8.6, TSAT of 5, ferritin at 23, TSH 0.4, cortisol of 10, WBC 5.8, H and H 9.3/27.7 . Urinalysis, specific gravity of 1.005. Urine sodium of 92, creatinine of 22. Current Medications: The patient on its include hydralazine 25 b.i.d., Tylenol, morphine, hydrocodon e. Assessment And Plan: 1.Hyponatremia, multifactorial secondary to triamterene-hydrochlorothiazide/nonsteroidal use, questi onable of pain-induced syndrome of inappropriate antidiuretic hormone secretion and keep holding desm opressin for the time being. We will send repeated lab right now including the urine electrolyte and then we will decide about the IV fluid depending on that. 2.Hypomagnesemia, hypokalemia. We will supplement. 3.Hypertension, currently controlled, optimal. I agree with the hydralazine. 4.Coronary artery disease, currently normal volume. No need for diuresis. MA/MODL Voice ID: [id number] Report ID: [id number]
[2018-08-25] MEDS: HYDRALAZINE HCL 25 MG TABLET PO SCH (20:57)
[2018-08-26] MEDS: HYDROCODONE/APAP 10/325 TAB PO PRN ×3 (01:16→22:35)
[2018-08-26 06:16] LABS: Absolute Lymphocytes (CBC) 1.9 K/uL (0.7-4.9); Absolute Neutrophil 2.5 K/uL (1.8-8.0); Basophils % 0.9 % (0-1.3); Eosinophils % 3.7 % (0-4.4); Hematocrit 29.7 % (36.0-45.0); Lymphocytes % 33.2 % (15.3-44.8); MPV 8.5 fL (7.6-11.3); Monocytes % 18.4 % (3.3-12.3); RBC Red Blood Cell Count 3.52 M/uL (3.86-4.86)
[2018-08-26 06:48] LABS: Magnesium 2.1 mg/dL (1.8-2.4)
[2018-08-26] MEDS: FUROSEMIDE 20 MG/ 2ML VIAL IV SCH (09:08)
[2018-08-26] MEDS: HYDRALAZINE HCL 25 MG TABLET PO SCH ×2 (09:08→20:47)
[2018-08-26] MEDS: SODIUM CHLORIDE 1 GM TAB PO SCH ×3 (09:11→20:47)
--- NOTE | 2018-08-26 10:42 | P.PN ---
Subjective Date of Service: 08/26/18 Primary Care Provider: Dr. Davis Chief Complaint: Hyponatremia; status post fall Subjective: Doing well Physical Examination - Vital Signs Temperature: 98.4 F Blood Pressure: 130/72 Pulse: 75 Respirations: 16 Pulse Ox (%): 98 - Physical Exam General: Alert, In no apparent distress, Oriented x3, Cooperative HEENT: Atraumatic Neck: Supple Respiratory: Clear to auscultation bilaterally, Normal air movement Cardiovascular: Normal pulses, Regular rate/rhythm Gastrointestinal: Normal bowel sounds, Soft and benign, Non-distended, No masses , No rebound, No guarding Musculoskeletal: No erythema, No tenderness, No warmth Integumentary: No tenderness/swelling, No erythema, No warmth, No cyanosis Neurological: Normal speech, Normal strength at 5/5 x4 extr, Normal tone, Normal affect - Studies Medications List Reviewed: Yes Assessment & Plan Discharge Plan: Home Plan to discharge in: 24 Hours Physician Review Additional Text: Impression: Presyncope secondary to Hypokalemia, hyponatremia with noted acute on chronic renal disease stage 2 Hypertension with hypotension Anemia with iron deficiency Plan: Presyncope secondary to Hypokalemia, hyponatremia with noted acute on chronic renal disease stage 2: No syncope noted. Sodium improved. Renal ultrasound shows some renal dysfunction but lab back to baseline. Patient likely with chronic disease. Patient has been taking NSAIDs at home. Recommend to discontinue NSAIDs, triamterene hydrochlorothiazide and other medication that will interfere with hyponatremia and hypokalemia. Will discuss with nephrology on when patient may be able to be discharged home. Hypertension with hypotension: Blood pressure improved with hydralazine 25 mg 1 pill twice daily. Will continue monitor and adjust. Anemia with iron deficiency: Will continue with iron supplementation. Will monitor lab closely. Time Spent Managing Pts Care (In Minutes): 55
[2018-08-26] MEDS: ENOXAPARIN 30 MG/0.3 ML SQ SCH (16:27)
--- NOTE | 2018-08-26 17:16 | PN ---
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 The patient started on salt tablet, currently being corrected. Physical Examination: Vital Signs: When I saw the patient, blood pressure 130/72, pulse of 72. Chest: Clear to auscultation. Heart: S1, S2 regular. Abdomen: Soft, nontender. Extremity: No edema. Laboratory Data: WBC 5.6, H and H 9.9/29.7, platelets 245. Sodium up to 126, potassium 4, bicarb 33 , BUN 8, creatinine 0.7, calcium 9.1. TSAT of 5, ferritin of 23. Current Medications: The patient on include: 1.Lovenox. 2.Hydralazine 25 b.i.d. 3.Lasix 20 daily. 4.Sodium tablet. Assessment And Plan: 1.Hyponatremia secondary to syndrome of inappropriate antidiuretic hormone secretion secondary to pa in induced/nonsteroidal use, trending up appropriate rise. We will continue salt tablet and we will monitor. 2.Hypokalemia, status post replacement, resolved. 3.Hypomagnesemia, resolved. 4.Iron-deficiency anemia. We will start the patient on IV iron and we will follow up the patient. 5.Coronary artery disease, stable. ZOLTAN/KVNG Voice ID: [id number] Report ID: [id number]
[2018-08-26] MEDS: TRAMADOL HCL 50 MG TAB PO PRN (18:44)
[2018-08-27 05:43] VITALS: BMI 25.2
[2018-08-27 06:11] LABS: Absolute Lymphocytes (CBC) 1.8 K/uL (0.7-4.9); Absolute Monocytes 1.2 K/uL (0.1-1.3); Absolute Neutrophil 2.4 K/uL (1.8-8.0); Basophils % 0.9 % (0-1.3); Eosinophils % 2.5 % (0-4.4); Hematocrit 30.5 % (36.0-45.0); Lymphocytes % 31.9 % (15.3-44.8); Monocytes % 21.3 % (3.3-12.3); RBC Red Blood Cell Count 3.58 M/uL (3.86-4.86)
[2018-08-27 06:21] LABS: Magnesium 2.1 mg/dL (1.8-2.4); Potassium 3.3 mmol/L (3.5-5.1)
[2018-08-27] MEDS ORDERED: POTASSIUM CL SA 10 MEQ TAB PO ONE (09:00)
[2018-08-27] MEDS: FUROSEMIDE 20 MG/ 2ML VIAL IV SCH (09:00)
[2018-08-27] MEDS ORDERED: SOD FERRIC GLUC COMPLX/SUCROSE 250 MG in NA CHLORIDE 0.9% 250 ML IV ONE (09:00)
[2018-08-27] MEDS: HYDROCODONE/APAP 10/325 TAB PO PRN (10:21)
[2018-08-27] MEDS: SODIUM CHLORIDE 1 GM TAB PO SCH (10:22)
[2018-08-27] MEDS: HYDRALAZINE HCL 25 MG TABLET PO SCH (10:22)
[2018-08-27] MEDS ORDERED: POTASSIUM CL 40 MEQ in NA CHLORIDE 0.9% 500 ML IV SCH (11:00)
--- NOTE | 2018-08-27 11:19 | P.DS ---
Admission Date: 08/23/18 Discharge Date: 08/27/18 Primary Care Provider: Dr. Davis Disposition: ROUTINE DISCHARGE Discharge Condition: GOOD Reason for Admission: Hyponatremia; status post fall Consultations: Nephrology-Dr. Winkler Procedures: CT head: COMPARISON: None. TECHNIQUE: Axial 5 mm thick images of the head were obtained without IV contrast. All CT scans are performed using dose optimization technique as appropriate and may include automated exposure control or mA/KV adjustment according to patient size. FINDINGS: No intracranial hemorrhage, mass, edema or shift of mid-line structures. No acute infarction changes seen. No abnormal extra-axial fluid collections. Ventricles are normal. Mastoid air cells and visualized portions of the paranasal sinuses are clear. No acute bony findings. Minimal soft tissue prominence in the scalp fatty tissues posterior parietal. No fall or trauma history noted. This could be scarring from a prior injury. This is not seen as significant. No air or foreign body. IMPRESSION: Negative non-contrast CT head examination for acute or significant finding. ECHO: EF 55% LEFT VENTRICULAR WALL MOTION: NORMAL DOPPLER/COLOR FLOW: NORMAL COMMENTS: TECHNICALLY DIFFICULT STUDY. GROSSLY NORMAL LEFT VENTRICULAR EJECTION FRACTION AND LEFT VENTRICLE SIZE. NO EFFUSION. NO WALL MOTION ABNORMALITY Renal US: COMPARISON: None. FINDINGS: The right kidney measures 10 cm with an increased echotexture. The left kidney measures 10 cm with an increased echotexture. 2 centimeters cyst Hydronephrosis is not seen. No gross abnormality of bladder is seen IMPRESSION: Increased renal echotexture consistent with parenchymal disease 2 centimeter left renal cyst Medical Problem List: Presyncope secondary to Hypokalemia, hyponatremia related to syndrome of inappropriate antidiuretic hormone secretion secondary to pain medication- nonsteroidal anti-inflammatory with noted acute on chronic renal disease stage 2 Hypertension with hypotension, resolved Anemia with iron deficiency 2 cm left renal cyst Chronic pain Brief History of Present Illness: 57-year-old female present emergency room with increased fatigue and dizziness. Patient found to be severely hyponatremic and hypokalemic. Patient was admitted for treatment. Hospital Course: Patient presented presyncope. This was related to hypokalemia and hyponatremia. Patient was admitted for treatment. Patient seen by nephrology. Her condition improved. This was related to syndrome of inappropriate antidiuretic hormone secretion likely from pain medication-nonsteroidal anti- inflammatories. Renal ultrasound shows some chronic renal disease. Patient had acute on chronic renal disease stage II. Sodium and potassium improved. At discharge she will continue with Lasix 20 mg daily and salt tablets 1 g 3 times a day. Patient will need a follow up with Nephrology in 2 weeks. Recommend to recheck lab-BMP at that time. Recommend no further use of nonsteroidal anti- inflammatories. Future medications will need to be renally dosed. Patient has hypertension. Patient presented with hypotension. Medications have been adjusted. She will no longer take amlodipine, carvedilol,doxazosin or BROOKE/ARB inhibitors. Patient now on hydralazine. At discharge will continue with hydralazine 25 mg 1 pill twice daily. Recommend to maintain blood pressures less 150/80. Further adjustment can be done by nephrology. Patient with anemia secondary to iron deficiency. At discharge she will continue with iron supplementation. Recommending to recheck CBC in 2 weeks. Patient with chronic pain. Patient may continue with hydrocodone as needed. Recommend no further use of meloxicam or nonsteroidal anti-inflammatories. Patient should follow up with pain management to further address her condition Vital Signs/Physical Exam: Temp Pulse Resp BP Pulse Ox 98.5 F 84 18 140/75 99 08/27/18 08:00 08/27/18 10:50 08/27/18 08:00 08/27/18 10:50 08/27/18 08:00 General: Alert, In no apparent distress, Oriented x3, Cooperative HEENT: Atraumatic Neck: Supple Respiratory: Clear to auscultation bilaterally, Normal air movement Cardiovascular: Normal pulses, Regular rate/rhythm Gastrointestinal: Normal bowel sounds, Soft and benign, Non-distended, No tenderness, No masses, No rebound, No guarding Musculoskeletal: No erythema, No tenderness, No warmth Integumentary: No tenderness/swelling, No erythema, No warmth, No cyanosis Neurological: Normal speech, Normal strength at 5/5 x4 extr, Normal tone, Normal affect Laboratory Data at Discharge: WBC 5.5 K/uL (4.3-10.9) 08/27/18 05:30 Hgb 10.0 g/dL (12.0-15.0) L 08/27/18 05:30 Hct 30.5 % (36.0-45.0) L 08/27/18 05:30 Plt Count 245 K/uL (152-406) 08/27/18 05:30 PT 10.7 SECONDS (9.5-12.5) 08/23/18 18:00 INR 0.91 08/23/18 18:00 Sodium 130 mmol/L (136-145) L 08/27/18 05:30 Potassium 3.3 mmol/L (3.5-5.1) L 08/27/18 05:30 BUN 11 mg/dL (7-18) 08/27/18 05:30 Creatinine 0.86 mg/dL (0.55-1.3) 08/27/18 05:30 Glucose 83 mg/dL (74-106) 08/27/18 05:30 Uric Acid 8.0 mg/dL (2.6-6.0) H 08/25/18 07:18 Phosphorus 1.6 mg/dL (2.5-4.9) L 08/25/18 05:47 Magnesium 2.1 mg/dL (1.8-2.4) 08/27/18 05:30 Total Bilirubin 0.3 mg/dL (0.2-1.0) 08/23/18 18:00 AST 14 U/L (15-37) L 08/23/18 18:00 ALT 15 U/L (12-78) 08/23/18 18:00 Alkaline Phosphatase 126 U/L (45-117) H 08/23/18 18:00 Home Medications: Hydrocodone/Acetaminophen [Hydrocodone-Acetamin 10-325 mg] 1 tab PO TID PRN Ferrous Sulfate [Iron] 325 mg PO DAILY #30 tablet 08/27/18 Furosemide [Lasix*] 20 mg PO DAILY #30 tab 08/27/18 Sodium Chloride Tab [Sodium Chloride*] 1 gm PO TID #90 tab 08/27/18 New Medications: Ferrous Sulfate [Iron] 325 mg PO DAILY #30 tablet Furosemide [Lasix*] 20 mg PO DAILY #30 tab Sodium Chloride Tab [Sodium Chloride*] 1 gm PO TID #90 tab Patient Discharge Instructions: 1. Patient will need to follow up with a PCP in 1 week to follow up this hospitalization. 2. Patient presented presyncope. This was related to hypokalemia and hyponatremia. Patient was admitted for treatment. Patient seen by nephrology. Her condition improved. This was related to syndrome of inappropriate antidiuretic hormone secretion likely from pain medication-nonsteroidal anti-inflammatories. Renal ultrasound shows some chronic renal disease. Patient had acute on chronic renal disease stage II. Sodium and potassium improved. At discharge she will continue with Lasix 20 mg daily and salt tablets 1 g 3 times a day. Patient will need a follow up with Nephrology in 2 weeks. Recommend to recheck lab-BMP at that time. Recommend no further use of nonsteroidal anti-inflammatories. Future medications will need to be renally dosed. 3. Patient has hypertension. Patient presented with hypotension. Medications have been adjusted. She will no longer take amlodipine, carvedilol,doxazosin or BROOKE/ARB inhibitors. Patient now on hydralazine. At discharge will continue with hydralazine 25 mg 1 pill twice daily. Recommend to maintain blood pressures less 150/80. Further adjustment can be done by nephrology. 4. Patient with anemia secondary to iron deficiency. At discharge she will continue with iron supplementation. Recommending to recheck CBC in 2 weeks. 5. Patient with chronic pain. Patient may continue with hydrocodone as needed. Recommend no further use of meloxicam or nonsteroidal anti-inflammatories. Patient should follow up with pain management to further address her condition Diet: Renal Activity: Fall precautions Time spent managing pt's care (in minutes): 55
[2018-08-27 12:14] VITALS: BP 132/83; TEMP 97.5
--- NOTE | 2018-08-27 12:14 | PN ---
Date of Progress Note: 08/27/2018 NEPHROLOGY FOLLOWUP Subjective: The patient feeling better, more awake. The patient responding very well to current Las ix and the salt tablet. Physical Examination: Vital Signs: Blood pressure 140/75, pulse of 84, afebrile. The patient voiding very well. No real measurement for the urine output, what was reported it is 2700. Chest: Clear to auscultation. Heart: S1, S2 regular. Abdomen: Soft, nontender. Extremity: No edema. Laboratory Data: H and H 06/02.5. Sodium 130, potassium 3.3, bicarb 31, BUN 11, creatinine 0.8, mag nesium 2.1, TSAT of 5. Current Medications: The patient on include: 1.Lovenox. The patient is receiving IV iron today. 2.Hydralazine 25 b.i.d. 3.Tylenol. 4.Lasix 20 IV daily. 5.Salt tablet 1 g t.i.d. Assessment And Plan: 1.Hyponatremia secondary to syndrome of inappropriate antidiuretic hormone secretion combination sec ondary to nonsteroidal use and pain on the recovery, responding to current treatment. I am going to continue salt tablet and Lasix, and we will monitor. 2.Hypertension, controlled optimal. Continue hydralazine. The patient is going to need follow up i n [address] Hawley with chemistry and urine electrolytes. The patient cleared from the renal standpoint for discharge lawrence serra MA/KVNG Voice ID: [id number] Report ID: [id number]
[2018-08-27 12:52] VITALS: O2SAT 99
[2018-08-28] MEDS ORDERED: FUROSEMIDE 20 MG TABLET PO SCH (09:00)
== END 2018-08-27 12:59 | disposition home or self-care (01) | DRG 645 ==
LOC: ER 17:03 → ERHOLD 20:02 → 2ND 20:37
PROVIDERS: ADMIT Hospitalist; ATTEND Family Medicine
DX: E22.2 Syndrome of inappropriate secretion of antidiuretic hormone (principal); E87.6 Hypokalemia; I12.9 Hypertensive chronic kidney disease with stage 1 through stage 4 chronic kidney disease, or unspecified chronic kidney disease; N18.3 Chronic kidney disease, stage 3 (moderate); I95.9 Hypotension, unspecified; I25.10 Atherosclerotic heart disease of native coronary artery without angina pectoris; E83.42 Hypomagnesemia; D50.9 Iron deficiency anemia, unspecified; M19.90 Unspecified osteoarthritis, unspecified site; G89.29 Other chronic pain; Z87.891 Personal history of nicotine dependence; Z23 Encounter for immunization
CPT/HCPCS: 36415; 70450; 76770; 80048; 80076; 81001; 81003; 82043; 82533; 82550; 82570; 82607; 82728; 83540; 83735; 83880; 83935; 84100; 84132; 84300; 84443; 84466; 84484; 84550; 85025; 85610; 93005; 93306; 97163; 99284; G0008; J1650; J1940; J2405; J2597; J2916; J3475; J7030; Q2035

== ENCOUNTER 2021-04-20 12:40 | Emergency (ER) | payer OTHER ==
--- NOTE | 2021-04-20 15:35 | RAD REPORT ---
EXAM DESCRIPTION: RAD - Hip Left 2 View - 04/20/2021 3:21 pm CLINICAL HISTORY: Left hip pain status post injury FINDINGS: A left hip arthroplasty without evidence of loosening of the prosthesis. No dislocation Curvilinear lucency within the greater trochanter left femur. Probably this represents an acute fract ure. CT scan would be helpful for further evaluation
[2021-04-20] MEDS ORDERED: KETOROLAC 30 MG/ML INJ ONE (16:18)
[2021-04-20] MEDS ORDERED: METHYLPREDNISOLONE 125 MG INJ ONE (16:18)
--- NOTE | 2021-04-20 18:01 | RAD REPORT ---
EXAM DESCRIPTION: CT - Hip Left Wo Con - 04/20/2021 5:52 pm CLINICAL HISTORY: Left hip pain status post fall COMPARISON: X-ray April 20, 2021 TECHNIQUE: Computed axial tomography left hip obtained with coronal and sagittal reconstruction. All CT scans are performed using dose optimization technique as appropriate and may include automated exposure control or mA/KV adjustment according to patient size. FINDINGS: Left hip arthroplasty is been performed. There is no evidence of loosening of the prosthe sis. No dislocation An avulsion fracture involves the greater trochanter of the left femur. IMPRESSION: Avulsion fracture greater trochanter left femur probably acute/subacute
--- NOTE | 2021-04-20 18:18 | EDPHYS ---
Physician Documentation [facility] Name: Carla Cohen Age: 60 yrs Sex: Female : 1960 Arrival Date: 04/20/2021 Time: 12:40 Bed 28 Private MD: ED Physician Chapito Montoya HPI: 04/21 07:50 This 60 yrs old Female presents to ER via Wheelchair with complaints of Hip kdr Pain. 07:50 The patient or guardian reports decreased range of motion, an injury, pain. that kdr occurred at home, The patient is able to ambulate with assistance. The complaints affect the left hip. Onset: The symptoms/episode began/occurred suddenly, 2 week(s) ago, Patient fell about 2 weeks ago initially had an injury to the left hip. Then about a week ago she felt a pop in her left hip and had acute pain. Since then she has persisted with pain in the left hip specially with movement and flexion. Modifying factors: The symptoms are alleviated by nothing, the symptoms are aggravated by any movement, flexion. Associated signs and symptoms: Loss of consciousness: the patient experienced no loss of consciousness, Pertinent positives: of the left hip. Severity of symptoms: At their worst the symptoms were mild, moderate, just prior to arrival, in the emergency department the symptoms are unchanged. The patient has not experienced similar symptoms in the past. 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 Historical: - Allergies: 04/20 13:08 NKDA; aa5 - PMHx: 13:08 Arthritis; Hypertension; aa5 - PSHx: 13:08 Zan hip replacements; aa5 ROS: 04/21 07:50 Constitutional: Negative for fever, chills, and weight loss, Eyes: Negative for injury, kdr pain, redness, and discharge, ENT: Negative for injury, pain, and discharge, Neck: Negative for injury, pain, and swelling, Cardiovascular: Negative for chest pain, palpitations, and edema, Respiratory: Negative for shortness of breath, cough, wheezing, and pleuritic chest pain, Abdomen/GI: Negative for abdominal pain, nausea, vomiting, diarrhea, and constipation, Back: Negative for injury and pain, : Negative for injury, bleeding, discharge, and swelling, Skin: Negative for injury, rash, and discoloration, Neuro: Negative for headache, weakness, numbness, tingling, and seizure activity. Psych: Negative for depression, anxiety, suicide ideation, homicidal ideation, and hallucinations, Allergy/Immunology: Negative for hives, rash, and allergies, Endocrine: Negative for neck swelling, polydipsia, polyuria, polyphagia, and marked weight changes, Hematologic/Lymphatic: Negative for swollen nodes, abnormal bleeding, and unusual bruising. MS/extremity: Positive for injury or acute deformity, decreased range of motion, pain, of the left hip. Exam: 07:50 Constitutional: This is a well developed, well nourished patient who is awake, alert, kdr and in no acute distress. Head/Face: Normocephalic, atraumatic. Eyes: Pupils equal round and reactive to light, extra-ocular motions intact. Lids and lashes normal. Conjunctiva and sclera are non-icteric and not injected. Cornea within normal limits. Periorbital areas with no swelling, redness, or edema. Neck: Trachea midline, no thyromegaly or masses palpated, and no cervical lymphadenopathy. Supple, full range of motion without nuchal rigidity, or vertebral point tenderness. No Meningismus. Chest/axilla: Normal chest wall appearance and motion. Nontender with no deformity. No lesions are appreciated. Cardiovascular: Regular rate and rhythm with a normal S1 and S2. No gallops, murmurs, or rubs. Normal PMI, no JVD. No pulse deficits. Respiratory: Lungs have equal breath sounds bilaterally, clear to auscultation and percussion. No rales, rhonchi or wheezes noted. No increased work of breathing, no retractions or nasal flaring. Abdomen/GI: Soft, non-tender, with normal bowel sounds. No distension or tympany. No guarding or rebound. No evidence of tenderness throughout. Back: No spinal tenderness. No costovertebral tenderness. Full range of motion. Skin: Warm, dry with normal turgor. Normal color with no rashes, no lesions, and no evidence of cellulitis. Neuro: Awake and alert, GCS 15, oriented to person, place, time, and situation. Cranial nerves II-XII grossly intact. Motor strength 5/5 in all extremities. Sensory grossly intact. Cerebellar exam normal. Normal gait. Psych: Awake, alert, with orientation to person, place and time. Behavior, mood, and affect are within normal limits. 07:50 Musculoskeletal/extremity: Extremities: grossly normal except: noted in the left hip: decreased ROM, pain, Patient did not have any pain with rocking of the left distal extremity side to side however she did have significant pain when flexed at the hip. The pain was located in the left proximal femur region. Vital Signs: 04/20 13:08 BP 110 / 66; Pulse 65; Resp 16 S; Temp 98.1(TE); Pulse Ox 98% on R/A; Weight 54.43 kg aa5 (R); Height 5 ft. 8 in. (172.72 cm) (R); 14:45 BP 113 / 61; Pulse 71; Resp 18; Temp 98.1(O); Pulse Ox 99% on R/A; kh1 16:08 BP 106 / 66; Pulse 62; Resp 18; Temp 98.0; Pulse Ox 98% on R/A; kh1 17:18 BP 112 / 62; Pulse 58; Resp 16 S; Pulse Ox 99% on R/A; kh1 13:08 Body Mass Index 18.25 (54.43 kg, 172.72 cm) aa5 MDM: 18:16 Patient medically screened. kdr 04/21 07:50 Data reviewed: vital signs, nurses notes, lab test result(s), radiologic studies. kdr Counseling: I had a detailed discussion with the patient and/or guardian regarding: the historical points, exam findings, and any diagnostic results supporting the discharge/admit diagnosis, lab results, radiology results, the need for outpatient follow up. Physician consultation: Bhavik Villanueva MD and will see patient in office, next week. 04/20 13:10 Order name: Hip Left 2 View XRAY; Complete Time: 16:51 aa5 04/20 17:12 Order name: Hip Left Wo Con; Complete Time: 18:05 EDMS 04/20 18:15 Order name: Crutches kdr Administered Medications: 04/20 15:59 Drug: SOLU-Medrol (methylPrednisoLONE) 125 mg Route: IVP; Site: left forearm; kh1 15:59 Drug: Ketorolac 15 mg Route: IVP; Site: left forearm; kh1 16:22 Drug: Robaxin (methocarbamol) 1 grams Route: IVPB; Infused Over: 1 hrs; Site: left kh1 forearm; Disposition Summary: 04/20/21 18:16 Discharge Ordered Location: Home kdr Problem: new kdr Symptoms: have improved kdr Condition: Stable kdr Diagnosis - Status post fall from standing, left hip pain, avulsion fracture left greater kdr trochanter of the femur Followup: kdr - With: Bhavik Villanueva MD - When: 2 - 3 days - Reason: If symptoms return, Further diagnostic work-up, Recheck today's complaints, Continuance of care, Re-evaluation by your physician Discharge Instructions: - Discharge Summary Sheet kdr - Hip Fracture kdr - Crutch Use, Adult, [id number] kdr Forms: - Medication Reconciliation Form kdr - Thank You Letter kdr Prescriptions: - Cyclobenzaprine 10 mg Oral Tablet - take 1 tablet by ORAL route every 8 hours As needed; 16 tablet; Refills: 0, kdr Product Selection Permitted Signatures: Dispatcher [employer] Chapito Roman MD MD kdr Jhoana Fowler RN RN aa5 Meaghan Maria [facility] Corrections: (The following items were deleted from the chart) 17:12 16:58 CT LEFT HIP WO CONTRAST ordered. EDMS EDMS
--- NOTE | 2021-04-20 18:18 | ER ---
Nurse's Notes [facility] Name: Carla Cohen Age: 60 yrs Sex: Female : 1960 Arrival Date: 04/20/2021 Time: 12:40 Bed 28 Private MD: Diagnosis: Status post fall from standing, left hip pain, avulsion fracture left greater trochanter of the femur Presentation: 04/20 13:08 Chief complaint: Patient states: fall 2 weeks ago and hurt left hip. Denies head aa5 injury, denies LOC. Coronavirus screen: At this time, the client does not indicate any symptoms associated with coronavirus-19. Ebola Screen: Patient negative for fever greater than or equal to 101.5 degrees Fahrenheit, and additional compatible Ebola Virus Disease symptoms. Initial Sepsis Screen: Does the patient meet any 2 criteria? No. Patient's initial sepsis screen is negative. Does the patient have a suspected source of infection? No. Patient's initial sepsis screen is negative. Risk Assessment: Do you want to hurt yourself or someone else? Patient reports no desire to harm self or others. Onset of symptoms was April 2021. 13:08 Method Of Arrival: Wheelchair aa5 13:08 Acuity: DAI 4 aa5 Triage Assessment: 14:44 General: Appears in no apparent distress. Behavior is calm, cooperative, appropriate kh1 for age. Pain: Complains of pain in left hip Pain does not radiate. Pain currently is 8 out of 10 on a pain scale. Quality of pain is described as aching, sharp, Pain began suddenly, Aggravated by weight bearing. Neuro: No deficits noted. Level of Consciousness is awake, alert, obeys commands, Oriented to person, place, time, situation, Appropriate for age Assistant [employer] are equal bilaterally Gait is unsteady, Speech is normal. Historical: - Allergies: 13:08 NKDA; aa5 - PMHx: 13:08 Arthritis; Hypertension; aa5 - PSHx: 13:08 Zan hip replacements; aa5 Screenin:49 Abuse screen: Denies threats or abuse. Nutritional screening: No deficits noted. kh1 Tuberculosis screening: No symptoms or risk factors identified. Fall Risk Ambulatory Aid- Crutches/Cane/Walker (15 pts). Gait- Impaired (20 pts.). Assessment: 14:48 Neuro: No deficits noted. Level of Consciousness is awake, alert, obeys commands. kh1 Respiratory: No deficits noted. Reports. GI: No deficits noted. : No deficits noted. 16:08 Reassessment: Patient appears in no apparent distress at this time. No changes from [facility] previously documented assessment. Patient and/or family updated on plan of care and expected duration. Pain level reassessed. Patient is alert, oriented x 3, equal unlabored respirations, skin warm/dry/pink. 17:17 Reassessment: Patient appears in no apparent distress at this time. No changes from [facility] previously documented assessment. Patient and/or family updated on plan of care and expected duration. Pain level reassessed. Patient is alert, oriented x 3, equal unlabored respirations, skin warm/dry/pink. RESTING QUIETLY IN BE NAD. Vital Signs: 13:08 BP 110 / 66; Pulse 65; Resp 16 S; Temp 98.1(TE); Pulse Ox 98% on R/A; Weight 54.43 kg aa5 (R); Height 5 ft. 8 in. (172.72 cm) (R); 14:45 BP 113 / 61; Pulse 71; Resp 18; Temp 98.1(O); Pulse Ox 99% on R/A; kh1 16:08 BP 106 / 66; Pulse 62; Resp 18; Temp 98.0; Pulse Ox 98% on R/A; kh1 17:18 BP 112 / 62; Pulse 58; Resp 16 S; Pulse Ox 99% on R/A; kh1 13:08 Body Mass Index 18.25 (54.43 kg, 172.72 cm) aa ED Course: 12:40 Patient arrived in ED. as 13:08 Arm band placed on. aa5 13:09 Triage completed. aa5 14:07 Chapito Montoya MD is Attending Physician. kdr 14:38 Meaghan Maria is Primary Nurse. kh1 14:49 Patient has correct armband on for positive identification. Bed in low position. Call [facility] light in reach. Side rails up X2. Adult w/ patient. 14:52 No provider procedures requiring assistance completed. kh1 15:21 Hip Left 2 View XRAY In Process Unspecified. EDMS 17:52 Hip Left Wo Con In Process Unspecified. EDMS 18:16 Bhavik Villanueva MD is Referral Physician. kdr Administered Medications: 15:59 Drug: SOLU-Medrol (methylPrednisoLONE) 125 mg Route: IVP; Site: left forearm; kh1 15:59 Drug: Ketorolac 15 mg Route: IVP; Site: left forearm; kh1 16:22 Drug: Robaxin (methocarbamol) 1 grams Route: IVPB; Infused Over: 1 hrs; Site: left kh1 forearm; Outcome: 18:16 Discharge ordered by . kdr 19:13 Patient left the ED. [facility] Signatures: Dispatcher [employer] EDMS Chapito Montoya MD MD kdr Bhumika Rudolph Audri RN RN aa5 Meaghan Maria [facility] Corrections: (The following items were deleted from the chart) 13:10 13:08 Chief complaint: Patient states: fall 2 weeks ago and hurt left hip. aa5 royal5
[2021-04-20 20:03] VITALS: TEMP 98
[2021-04-20 20:04] VITALS: BP 112/62; O2SAT 99
== END 2021-04-20 19:13 | disposition home or self-care (01) ==
LOC: ER 12:40
DX: S72.112A Displaced fracture of greater trochanter of left femur, initial encounter for closed fracture (principal); W18.30XA Fall on same level, unspecified, initial encounter; Y93.89 Activity, other specified; Y92.009 Unspecified place in unspecified non-institutional (private) residence as the place of occurrence of the external cause; I10 Essential (primary) hypertension; Z96.643 Presence of artificial hip joint, bilateral
CPT/HCPCS: 73700; 73502; 96375; 96374; 99283; J2930; J2800

== ENCOUNTER 2022-08-27 16:54 | Emergency (ER) | payer OTHER ==
--- OUTSIDE RECORDS SUMMARY | 2022-08-27 16:58 | XMS REPORT | Continuity of Care Document ---
:1960 Author Organization [facility] t Address [address] [place] [address] Care Team Providers Name Role Phone Victorino Candida Attending Clinician Unavailable Arnel Lemon Attending Clinician Unavailable Jewels Richardson Attending Clinician Unavailable Calderon Napier I Attending Clinician DR CALDERON NAPIER Attending Clinician Unavailable DR CALDERON NAPIER Admitting Clinician Unavailable Problems Condition Condition Condition Status Onset Resolution Last Treating Co mments Source Name Details Category Date Date Treatment Clinician Date IDIOPATHIC IDIOPATHI Diagnosis Active 2017-11-14 Memoria ASEPTIC C ASEPTIC 4-10 08:34:00 l NECROSIS NECROSIS 00:00: Jeison n OF LEFT OF LEFT 00 FEMU FEMU Active 11/11/2017 [facility] [place] Arthritis Arthritis Problem Active 2017-11-17 Memoria (disorder) (disorder) 01:59:26 l Active [place] Problem 11/17/2017 [facility] Hypertensi Problem Active 2017-11-17 M emoria ve Hypertensi 01:59:26 l disorder, ve [place] systemic disorder, arterial systemic (disorder) arterial (disorder) Active Problem 11/17/2017 [facility] Allergies, Adverse Reactions, Alerts Allergy Allergy Status Severity Reaction(s) Onset Inactive Treating Comm ents Source Name Type Date Date Clinician sulfa sulfa Active Memoria drugs<king drugs<king l p>1</sup p>1</sup Jeison n > > quinapri quinapri Active Memori a l<sup>2< l<sup>2< l /sup> /sup> Edg[place] Social History Social Habit Start Date Stop Date Quantity Comments Source Social History 2017-11-14 2017-11-14 [facility] derick 14:04:01 14:04:01 Medications Ordered Filled Start Stop Current Ordering Indication Dosage Frequency Signature Comments Components Source Medication Medication Date Date Medication? Clinician (SIG) Name Name propofol No Route: IV, Mem oria (ANES) 4-13 Drug form: l 16:05: INJ, ONCE, Stop date: 11/14/17 11:05:00 CDT propofol 2018-0 No Route: IV, Mem oria (ANES) 4-13 Drug form: l 16:05: INJ, ONCE, Stop date: 11/14/17 11:05:00 CDT propofol 2018-0 No Route: IV, Mem oria (ANES) 4-13 Drug form: l 16:05: INJ, ONCE, Stop date: 11/14/17 11:05:00 CDT propofol 2018-0 No Route: IV, Mem oria (ANES) 4-13 Drug form: l 16:05: INJ, ONCE, Stop date: 11/14/17 11:05:00 CDT propofol 2018-0 No Route: IV, Mem oria (ANES) 4-13 Drug form: l 16:05: INJ, ONCE, Stop date: 11/14/17 11:05:00 CDT lidocaine 2018-0 No Route: IV, Me moria (ANES) 4-13 Drug form: l 15:45: INJ, ONCE, Stop date: 11/14/17 10:45:00 CDT propofol 2018-0 No Route: IV, Mem oria (ANES) 4-13 Drug form: l 15:45: INJ, ONCE, Stop date: 11/14/17 10:45:00 CDT propofol 2018-0 No Route: IV, Mem oria (ANES) 4-13 Drug form: l 15:45: INJ, ONCE, Stop date: 11/14/17 10:45:00 CDT lidocaine 2018-0 No Route: IV, Me moria (ANES) 4-13 Drug form: l 15:45: INJ, ONCE, Stop date: 11/14/17 10:45:00 CDT propofol 2018-0 No Route: IV, Mem oria (ANES) 4-13 Drug form: l 15:45: INJ, ONCE, Stop date: 11/14/17 10:45:00 CDT lidocaine 2018-0 No Route: IV, Me moria (ANES) 4-13 Drug form: l 15:45: INJ, ONCE, Ed[place]ardo Stop date: 11/14/17 10:45:00 CDT propofol 2018-0 No Route: IV, Mem oria (ANES) 4-13 Drug form: l 15:45: INJ, ONCE, [place] 00 Stop date: 11/14/17 10:45:00 CDT lidocaine 2018-0 No Route: IV, Me moria (ANES) 4-13 Drug form: l 15:45: INJ, ONCE, [place] Stop date: 11/14/17 10:45:00 CDT propofol 2018-0 No Route: IV, Mem oria (ANES) 4-13 Drug form: l 15:45: INJ, ONCE, [place] 00 Stop date: 11/14/17 10:45:00 CDT lidocaine 2018-0 No Route: IV, Me moria (ANES) 4-13 Drug form: l 15:45: INJ, ONCE, [place] 00 Stop date: 11/14/17 10:45:00 CDT fentaNYL 2018-0 No Route: IV, Mem oria (ANES) 4-13 Drug form: l 15:23: INJ, ONCE, [place] Stop date: 11/14/17 10:23:00 CDT midazolam 2018-0 No Route: IV, Me moria (ANES) 4-13 Drug form: l 15:23: SOLN, [place] 00 ONCE, Stop date: 11/14/17 10:23:00 CDT fentaNYL 2018-0 No Route: IV, Mem oria (ANES) 4-13 Drug form: l 15:23: INJ, ONCE, [place] Stop date: 11/14/17 10:23:00 CDT midazolam 2018-0 No Route: IV, Me moria (ANES) 4-13 Drug form: l 15:23: SOLN, [place] 00 ONCE, Stop date: 11/14/17 10:23:00 CDT fentaNYL 2018-0 No Route: IV, Mem oria (ANES) 4-13 Drug form: l 15:23: INJ, ONCE, [place] Stop date: 11/14/17 10:23:00 CDT midazolam 2018-0 No Route: IV, Me moria (ANES) 4-13 Drug form: l 15:23: SOLN, [place] 00 ONCE, Stop date: 11/14/17 10:23:00 CDT fentaNYL 2018-0 No Route: IV, Mem oria (ANES) 4-13 Drug form: l 15:23: INJ, ONCE, [place] 00 Stop date: 11/14/17 10:23:00 CDT midazolam 2018-0 No Route: IV, Me moria (ANES) 4-13 Drug form: l 15:23: SOLN, [place] 00 ONCE, Stop date: 11/14/17 10:23:00 CDT fentaNYL 2018-0 No Route: IV, Mem oria (ANES) 4-13 Drug form: l 15:23: INJ, ONCE, [place] 00 Stop date: 11/14/17 10:23:00 CDT midazolam 2018-0 No Route: IV, Me moria (ANES) 4-13 Drug form: l 15:23: SOLN, [place] 00 ONCE, Stop date: 11/14/17 10:23:00 CDT Lactated 2018-0 No Route: IV, Mem oria Ringers 4-13 Total l Injection 15:03: Volume: Sonali nn IV (ANES) 00 1,000, 1000 mL Start date: 11/14/17 10:03:00 CDT, Stop date: 11/14/17 11:03:00 CDT Lactated 2018-0 No Route: IV, Mem oria Ringers 4-13 Total l Injection 15:03: Volume: Sonali nn IV (ANES) 00 1,000, 1000 mL Start date: 11/14/17 10:03:00 CDT, Stop date: 11/14/17 11:03:00 CDT Lactated 2018-0 No Route: IV, Mem oria Ringers 4-13 Total l Injection 15:03: Volume: Sonali nn IV (ANES) 00 1,000, 1000 mL Start date: 11/14/17 10:03:00 CDT, Stop date: 11/14/17 11:03:00 CDT Lactated 2018-0 No Route: IV, Mem oria Ringers 4-13 Total l Injection 15:03: Volume: Sonali nn IV (ANES) 00 1,000, 1000 mL Start date: 11/14/17 10:03:00 CDT, Stop date: 11/14/17 11:03:00 CDT Lactated 2018-0 No Route: IV, Mem oria Ringers 4-13 Total l Injection 15:03: Volume: Sonali nn IV (ANES) 00 1,000, 1000 mL Start date: 11/14/17 10:03:00 CDT, Stop date: 11/14/17 11:03:00 CDT Lactated 2018-0 No 1,000 mL, Aníbal nic Ringers IV 4-13 Rate: 40 l 1,000 mL 13:45: ml/hr, [place] 00 Infuse over: 25 hr, Route: IV, Dosing Weight 78.182 kg, Total Volume: 1,000, Start date: 11/14/17 8:45:00 CDT, Duration: 30 day, Stop date: 12/14/17 8:44:00 CDT, 1.95, m2 Lactated 2018-0 No 1,000 mL, Aníbal nic Ringers IV 4-13 Rate: 40 l 1,000 mL 13:45: ml/hr, [place] 00 Infuse over: 25 hr, Route: IV, Dosing Weight 78.182 kg, Total Volume: 1,000, Start date: 11/14/17 8:45:00 CDT, Duration: 30 day, Stop date: 12/14/17 8:44:00 CDT, 1.95, m2 Lactated 2018-0 No 1,000 mL, Aníbal nic Ringers IV 4-13 Rate: 40 l 1,000 mL 13:45: ml/hr, [place] 00 Infuse over: 25 hr, Route: IV, Dosing Weight 78.182 kg, Total Volume: 1,000, Start date: 11/14/17 8:45:00 CDT, Duration: 30 day, Stop date: 12/14/17 8:44:00 CDT, 1.95, m2 Lactated 2018-0 No 1,000 mL, Aníbal nic Ringers IV 4-13 Rate: 40 l 1,000 mL 13:45: ml/hr, [place] 00 Infuse over: 25 hr, Route: IV, Dosing Weight 78.182 kg, Total Volume: 1,000, Start date: 11/14/17 8:45:00 CDT, Duration: 30 day, Stop date: 12/14/17 8:44:00 CDT, 1.95, m2 Lactated 2017-0 No 1,000 mL, Aníbal nic Ringers IV 11-14 Rate: 40 l 1,000 mL 13:45: ml/hr, [place] 00 Infuse over: 25 hr, Route: IV, Dosing Weight 78.182 kg, Total Volume: 1,000, Start date: 11/14/17 8:45:00 CDT, Duration: 30 day, Stop date: 12/14/17 8:44:00 CDT, 1.95, m2 Tums 2018-0 Yes 500 mg, Memoria 4-11 CHEW, l 18:15: Daily, 0 [place] 00 Refill(s) Advil 2018-0 Yes PO, Q6H, 0 Memori a 4-11 Refill(s) l 18:15: [place] Tums 2018-0 Yes 500 mg, Memoria 4-11 CHEW, l 18:15: Daily, 0 [place] 00 Refill(s) Advil 2018-0 Yes PO, Q6H, 0 Memori a 4-11 Refill(s) l 18:15: [place] Tums 2018-0 Yes 500 mg, Memoria 4-11 CHEW, l 18:15: Daily, 0 [place] 00 Refill(s) Advil 2018-0 Yes PO, Q6H, 0 Memori a 4-11 Refill(s) l 18:15: [place] 00 Tums 2018-0 Yes 500 mg, Memoria 4-11 CHEW, l 18:15: Daily, 0 [place] 00 Refill(s) Advil 2018-0 Yes PO, Q6H, 0 Memori a 4-11 Refill(s) l 18:15: [place] 00 Tums 2018-0 Yes 500 mg, Memoria 4-11 CHEW, l 18:15: Daily, 0 [place] 00 Refill(s) Advil 2018-0 Yes PO, Q6H, 0 Memori a 4-11 Refill(s) l 18:15: [place] 00 Aspirin 325 2018-0 Yes 975 mg = 3 Memoria MG Oral 4-11 tab, PO, l Tablet 18:14: Q4H, PRN Pain, # 120 tab, 0 Refill(s) Aspirin 325 2018-0 Yes 975 mg = 3 Memoria MG Oral 4-11 tab, PO, l Tablet 18:14: Q4H, PRN [place] 00 Pain, # 120 tab, 0 Refill(s) Aspirin 325 2018-0 Yes 975 mg = 3 Memoria MG Oral 4-11 tab, PO, l Tablet 18:14: Q4H, PRN [place] 00 Pain, # 120 tab, 0 Refill(s) Aspirin 325 2018-0 Yes 975 mg = 3 Memoria MG Oral 4-11 tab, PO, l Tablet 18:14: Q4H, PRN [place] 00 Pain, # 120 tab, 0 Refill(s) Aspirin 325 2018-0 Yes 975 mg = 3 Memoria MG Oral 4-11 tab, PO, l Tablet 18:14: Q4H, PRN [place] 00 Pain, # 120 tab, 0 Refill(s) Acetaminoph 2018-0 Yes 1 tab, PO, Memoria en 325 MG / 4-11 Q6H, PRN l Hydrocodone 18:13: for pain, H ermann Bitartrate 00 # 24 tab, 10 MG Oral 0 Tablet Refill(s) [[place] 10/325] Acetaminoph 0 Yes 1 tab, PO, Memoria en 325 MG / 4-11 Q6H, PRN l Hydrocodone 18:13: for pain, H ermann Bitartrate 00 # 24 tab, 10 MG Oral 0 Tablet Refill(s) [[place] 10/325] Acetaminoph 2017-0 Yes 1 tab, PO, Memoria en 325 MG / 4-11 Q6H, PRN l Hydrocodone 18:13: for pain, H ermann Bitartrate 00 # 24 tab, 10 MG Oral 0 Tablet Refill(s) [[place] 10/325] Acetaminoph 2017-0 Yes 1 tab, PO, Memoria en 325 MG / 4-11 Q6H, PRN l Hydrocodone 18:13: for pain, H [place] Bitartrate 00 # 24 tab, 10 MG Oral 0 Tablet Refill(s) [[place] 10/325] Acetaminoph 2018-0 Yes 1 tab, PO, Memoria en 325 MG / 4-11 Q6H, PRN l Hydrocodone 18:13: for pain, H ermann Bitartrate 00 # 24 tab, 10 MG Oral 0 Tablet Refill(s) [[place] 10/325] gabapentin 2018- Yes 600 mg = 1 M emoria 600 MG Oral 4-11 tab, PO, l Tablet 18:12: PRN, # 270 Sonali nn 00 tab, 0 Refill(s) baclofen 10 2017-0 Yes 10 mg = 1 M emoria mg oral 4-11 tab, PO, l tablet 18:12: TID, PRN [place] 00 Spasms, # 90 tab, 0 Refill(s) gabapentin 2017-0 Yes 600 mg = 1 M emoria 600 MG Oral 4-11 tab, PO, l Tablet 18:12: PRN, # 270 Sonali nn 00 tab, 0 Refill(s) baclofen 10 0 Yes 10 mg = 1 M emoria mg oral 4-11 tab, PO, l tablet 18:12: TID, PRN [place] 00 Spasms, # 90 tab, 0 Refill(s) gabapentin 2018-0 Yes 600 mg = 1 M emoria 600 MG Oral 4-11 tab, PO, l Tablet 18:12: PRN, # 270 Sonali nn 00 tab, 0 Refill(s) baclofen 10 2017-0 Yes 10 mg = 1 M emoria mg oral 4-11 tab, PO, l tablet 18:12: TID, PRN [place] 00 Spasms, # 90 tab, 0 Refill(s) gabapentin 2018-0 Yes 600 mg = 1 M emoria 600 MG Oral 4-11 tab, PO, l Tablet 18:12: PRN, # 270 Sonali nn 00 tab, 0 Refill(s) baclofen 10 0 Yes 10 mg = 1 M emoria mg oral 4-11 tab, PO, l tablet 18:12: TID, PRN [place] 00 Spasms, # 90 tab, 0 Refill(s) gabapentin 2018-0 Yes 600 mg = 1 M emoria 600 MG Oral 4-11 tab, PO, l Tablet 18:12: PRN, # 270 Sonali nn 00 tab, 0 Refill(s) baclofen 10 2017-0 Yes 10 mg = 1 M emoria mg oral 4-11 tab, PO, l tablet 18:12: TID, PRN [place] 00 Spasms, # 90 tab, 0 Refill(s) Amlodipine 2018-0 Yes 10 mg = 1 Me moria 10 MG Oral 4-11 tab, PO, l Tablet 18:11: Daily, # [place] [Norvasc] 00 30 tab, 1 Refill(s) Hydrochloro 2018-0 Yes 1 tab, PO, Memoria thiazide 25 4-11 Daily, # l MG / 18:11: 15 tab, 0 [place] Triamterene 00 Refill(s) 37.5 MG Oral Tablet Amlodipine 2018-0 Yes 10 mg = 1 Me moria 10 MG Oral 4-11 tab, PO, l Tablet 18:11: Daily, # [place] [Norvasc] 00 30 tab, 1 Refill(s) Hydrochloro 2018-0 Yes 1 tab, PO, Memoria thiazide 25 4-11 Daily, # l MG / 18:11: 15 tab, 0 [place] Triamterene 00 Refill(s) 37.5 MG Oral Tablet Amlodipine 2018-0 Yes 10 mg = 1 Me moria 10 MG Oral 4-11 tab, PO, l Tablet 18:11: Daily, # [place] [Norvasc] 00 30 tab, 1 Refill(s) Hydrochloro 2018-0 Yes 1 tab, PO, Memoria thiazide 25 4-11 Daily, # l MG / 18:11: 15 tab, 0 [place] Triamterene 00 Refill(s) 37.5 MG Oral Tablet Amlodipine 2018-0 Yes 10 mg = 1 Me moria 10 MG Oral 4-11 tab, PO, l Tablet 18:11: Daily, # [place] [Norvasc] 00 30 tab, 1 Refill(s) Hydrochloro 2018-0 Yes 1 tab, PO, Memoria thiazide 25 4-11 Daily, # l MG / 18:11: 15 tab, 0 [place] Triamterene 00 Refill(s) 37.5 MG Oral Tablet Amlodipine 2018-0 Yes 10 mg = 1 Me moria 10 MG Oral 4-11 tab, PO, l Tablet 18:11: Daily, # [place] [Norvasc] 00 30 tab, 1 Refill(s) Hydrochloro 2018-0 Yes 1 tab, PO, Memoria thiazide 25 4-11 Daily, # l MG / 18:11: 15 tab, 0 [place] Triamterene 00 Refill(s) 37.5 MG Oral Tablet carvedilol 2018-0 Yes 25 mg = 1 Me moria 25 MG Oral 4-11 tab, PO, l Tablet 18:10: BID, # 60 Jeison n [Coreg] 00 tab, 0 Refill(s) carvedilol 2018-0 Yes 25 mg = 1 Me moria 25 MG Oral 4-11 tab, PO, l Tablet 18:10: BID, # 60 Jeison n [Coreg] 00 tab, 0 Refill(s) carvedilol 2018-0 Yes 25 mg = 1 Me moria 25 MG Oral 4-11 tab, PO, l Tablet 18:10: BID, # 60 Jeison n [Coreg] 00 tab, 0 Refill(s) carvedilol 2018-0 Yes 25 mg = 1 Me moria 25 MG Oral 4-11 tab, PO, l Tablet 18:10: BID, # 60 Jeison n [Coreg] 00 tab, 0 Refill(s) carvedilol 2018-0 Yes 25 mg = 1 Me moria 25 MG Oral 4-11 tab, PO, l Tablet 18:10: BID, # 60 Jeison n [Coreg] 00 tab, 0 Refill(s) Vital Signs Vital Name Observation Time Observation Value Comments Source Systolic (mm Hg) 2017-11-14 15:45:00 Aníbalnicola castaneda [place] Diastolic (mm Hg) 2017-11-14 15:45:00 Mem orial [place] Respitory [facility] 2017-11-14 [facility] [place] [facility] 2017-11-14 15:45:00 [facility] [place] Systolic (mm Hg) 2017-11-14 15:30:00 Aníbal tonya [place] Diastolic (mm Hg) 2017-11-14 15:30:00 Mem orial [place] Heart Rate 2017-11-14 15:30:00 [facility] [place] Respitory Rate 2017-11-14 15:30:00 Memori al [place] Diastolic (mm Hg) 2017-11-14 15:15:00 Mem orial [place] Respitory Rate 2017-11-14 15:15:00 Memori al [place] Heart Rate 2017-11-14 15:15:00 [facility] [place] Systolic (mm Hg) 2017-11-14 15:15:00 Aníbal tonya [place] BMI Calculated 2017-11-14 13:46:00 Memori al [place] Weight 2017-11-14 13:46:00 Lupe Reynoso Temperature Oral (F) 2017-11-14 13:45:00 97.9 F Lupe Reynoso Height 2017-11-12 17:58:00 171.45 cm [facility] Procedures Procedure Date / Time Performed Performing Clinician Marjorie dennis Injection 2017-11-14 05:00:00 Lupe minaya Hip 2015-08-04 00:00:00 Lupe minaya replacement<sup>1</sup> Lumpectomy of 2015-08-04 00:00:00 Lupe minaya breast<sup>2</sup> Hysterectomy [facility] [place]ardo Encounters Start End Encounter Admission Attending Care Care Encounter Source Date/Time Date/Time Type Type Clinicians Facility Department ID 2022-07-10 Outpatient [place], STLMLC STLMLC [id number] Common 11:25:00 Candida [id number] [facility] 2022-01-09 Outpatient [place], STLMLC STLMLC [id number] Common 13:19:01 Candida [id number] [facility] 2022-01-08 Outpatient [place], STLMLC STLMLC [id number] Common 09:55:00 Candida 11376 [facility] 2021-08-29 Outpatient [place], STLMLC STLMLC [id number] Common 12:11:51 Candida [id number] [facility] 2021-08-29 Outpatient STLMLC STLMLC [id number] Common 12:07:51 [id number] [facility] 2021-08-29 Outpatient Lemon, Kin STLMLC STLMLC [id number] Common 11:56:55 [id number] [facility] 2021-08-29 Outpatient Millender, STLMLC STLMLC [id number] Common 11:29:18 Jewels [id number] [facility] 2021-08-29 Outpatient [place], STLMLC STLMLC [id number] Common 11:23:56 Jewels [id number] [facility] 2021-08-29 Outpatient Millender, STLMLC STLMLC [id number] Common 11:14:42 Jewels [id number] [facility] 2021-08-29 Outpatient JOE Richardson [facility] [id number] Common 11:14:20 Jewels 11317 [facility] 2021-08-29 Outpatient JOE Richardson [facility] [id number] Common 11:06:09 Jewels [id number] [facility] 2021-08-29 Outpatient JOE Richardson [facility] [id number] Common 11:03:06 Jewels [id number] [facility] 2017-11-14 2017-11-15 Day [facility] [id number] Memoria 13:24:00 04:59:00 Surgery r [place] 00 l Orthopedic [facility] 2017-11-14 2017-11-15 Day [facility] [id number] Memoria 13:24:00 04:59:00 Surgery r [place] 00 l Orthopedic [facility] 2017-11-14 2017-11-14 Outpatient Calderon Napier [facility] [id number] 08:24:00 23:59:00 Long I 2017-11-14 2017-11-14 Outpatient CALDERON MARTINEZ [facility] [id number] [facility] 09:00:00 09:00:[address] [facility] Results This patient has no known results.
[2022-08-27 17:54] LABS: Absolute Lymphocytes (CBC) 0.3 K/uL (0.7-4.9); Hematocrit 49.4 % (36.0-45.0); Lymphocytes % 15.5 % (15.3-44.8); MCV 92.8 fL (80-100); MPV 8.9 fL (7.6-11.3); RBC Red Blood Cell Count 5.32 M/uL (3.86-4.86)
[2022-08-27 17:56] LABS: Blood Morphology Comment NOT SEEN (NOT SEEN); Platelet Estimate ADEQ; White Blood Cell Scan OK (OK)
[2022-08-27 18:15] LABS: Potassium 4.5 mmol/L (3.5-5.1)
[2022-08-27 18:17] LABS: Troponin High Sensitivity 65.5 pg/mL (<58.9)
[2022-08-27] MEDS ORDERED: NA CHLORIDE 0.9% 500 ML ONE (18:24)
--- NOTE | 2022-08-27 18:26 | RAD REPORT ---
EXAM DESCRIPTION: CT - Head C Spine Cap Srinivasa Carrera - 08/27/2022 5:54 pm CLINICAL HISTORY: Head and neck injury with chest and abdominal pain status post fall TECHNIQUE: Computed axial tomography of head, neck, chest, abdomen and pelvis obtained. IV and oral contrast not requested. Coronal and sagittal reconstruction performed. All CT scans are performed using dose optimization technique as appropriate and may include automated exposure control or mA/KV adjustment according to patient size. COMPARISON: None FINDINGS: An intracranial bleed is not seen. The ventricles are normal in caliber. An extra-axial fluid collection is not noted. . Fluid within the sinuses/mastoids is not seen. A cervical fracture is not seen. No dislocation is noted. Mild anterior subluxation C3 on C4 and C4 o n C5. No prevertebral soft tissue swelling. Presumably this is chronic. Moderate spondylosis mid and distal cervical spine The evaluation of mediastinum, kari, vessels, solid organs and bowel are limited secondary to the lac k of contrast administration. A mediastinal hematoma is not noted. A pleural effusion is not seen. A lung contusion is not present. The liver,spleen, pancreas, adrenals,kidneys and bladder do not demonstrate an acute traumatic injury Mild right hydronephrosis. Right ureter is dilated. Marked bladder distention. Bilateral hip arthroplasties. Pancreatic calcifications perhaps related to chronic pancreatitis IMPRESSION: No acute intracranial abnormality is seen. A cervical fracture is not visualized. If the patient continues have symptoms to suggest intracrania l/spinal cord/ligamentous pathology MRI be recommended No acute traumatic abnormality involving the chest/abdomen/pelvis. Marked bladder distention with mild right hydronephrosis
--- NOTE | 2022-08-27 18:30 | RAD REPORT ---
EXAM DESCRIPTION: Nasima Single View08/27/2022 6:14 pm CLINICAL HISTORY: Chest pain COMPARISON: 2017 FINDINGS: The lungs appear clear of acute infiltrate. The heart is normal size IMPRESSION: No acute abnormalities displayed
[2022-08-27] MEDS ORDERED: NOREPINEPHRINE BITARTRATE/D5W 4 MG/250 ML BAG IV ONE (18:56)
[2022-08-27 19:01] LABS: Urine Blood Negative (Negative); Urine Glucose Negative (Negative); Urine Protein 1+ (Negative); Urine Specific Gravity 1.015 (1.005-1.030); Urine pH 6.5 (5.0-7.0)
[2022-08-27] MEDS ORDERED: NALOXONE 0.4 MG/ML VIAL ONE ×2 (19:02)
[2022-08-27] MEDS ORDERED: NA CHLORIDE 0.9% 1,000 ML ONE ×2 (19:08→22:03)
[2022-08-27 19:10] LABS: Urine Bacteria 20-50 /HPF (<20); Urine Mucus Slight /HPF (None Seen); Urine RBC <5 /HPF (None Seen); Urine WBC Clump Rare /HPF (None Seen)
[2022-08-27 19:14] LABS: Barbiturates NEGATIVE (NEGATIVE); Benzodiazepines NEGATIVE (NEGATIVE); Cocaine NEGATIVE (NEGATIVE); METHAMPHETAM NEGATIVE (NEGATIVE); Methadone NEGATIVE (NEGATIVE); Opiates POSITIVE (NEGATIVE); Phencyclidine NEGATIVE (NEGATIVE); THC Cannibis NEGATIVE (NEGATIVE)
[2022-08-27 19:25] LABS: SARS-COV-2 RT PCR NEGATIVE (NEGATIVE)
[2022-08-27 19:35] LABS: Blood Gas Oxyhemoglobin 97.5 % (94-97); Blood O2 Saturation 98.7 % (92-98.5)
[2022-08-27 19:50] LABS: Albumin 2.9 g/dL (3.4-5.0); Bilirubin Direct 0.1 mg/dL (0-0.2); Bilirubin Total 0.8 mg/dL (0.2-1.0); Protein, Total 7.2 g/dL (6.4-8.2)
--- NOTE | 2022-08-27 19:55 | EDPHYS ---
Physician Documentation [facility] Name: Carla Cohen Age: 61 yrs Sex: Female : 1960 Arrival Date: 08/27/2022 Time: 17:00 Bed 4 Private MD: ED Physician Carlos A Peters HPI: 08/27 17:10 This 61 yrs old Female presents to ER via EMS with complaints of Altered Mental Status. cp 17:10 The patient presents with decreased responsiveness. Onset: The symptoms/episode cp began/occurred at an unknown time. last seen at baseline by ex was 4-5 days ago. 17:10 Possible causes: drug use, prescription narcotics, alcohol, has a history of chronic cp alcohol abuse. 17:10 Current symptoms: In the emergency department the patient's symptoms are unchanged from cp the initial presentation, despite EMS interventions. Patient's baseline: Neuro: alert and fully oriented, Motor: no deficits, Ambulation: walks without assistance, Speech: normal for age. Historical: - Allergies: 17:02 NKDA; iw - Home Meds: 17:02 amlodipine 10 mg tab 1 tab once daily [Active]; carvedilol 25 mg Oral tab 1 tab 2 times iw per day [Active]; doxazosin 2 mg Oral tab 1 tab once daily [Active]; furosemide 20 mg Oral tab 1 tab once daily [Active]; hydrocodone-acetaminophen 10-325 mg Oral tab every 6 hours [Active]; meloxicam 7.5 mg Oral tab 1 tab once daily [Active]; montelukast 10 mg Oral tab 1 tab once daily [Active]; Potassium Chloride Oral [Active]; - PMHx: 17:02 Arthritis; Hypertension; iw - PSHx: 17:02 Zan hip replacements; iw - Immunization history:: Adult Immunizations up to date. - Social history:: Smoking status: Patient reports the use of cigarette tobacco products, smokes one-half pack cigarettes per day. ROS: 17:12 Constitutional: Positive for poor PO intake, Negative for fever. cp 17:12 Neuro: Positive for altered mental status, weakness. cp 17:12 Unable to obtain ROS due to altered mental status. Exam: 17:13 ECG was reviewed by the Attending Physician. cp 17:15 Constitutional: The patient appears awake, non-diaphoretic, non-toxic, well developed, cp frail, smells of urine, unkempt, appears ill 17:15 Head/Face: Normocephalic, atraumatic. cp 17:15 Eyes: Periorbital structures: appear normal, Pupils: equal, round, and reactive to light and accomodation, Conjunctiva: normal, no exudate, no injection, Sclera: no appreciated abnormality, Lids and lashes: appear normal, bilaterally. 17:15 ENT: External ear(s): are unremarkable, Ear canal(s): are normal, clear, TM's: dullness, bilaterally, Nose: is normal, Mouth: Lips: dry, Oral mucosa: dry, Posterior pharynx: Airway: no evidence of obstruction, patent, swelling, is not appreciated, erythema, is not appreciated. 17:15 Neck: C-spine: vertebral tenderness, is not appreciated, crepitus, is not appreciated. 17:15 Chest/axilla: Inspection: normal, Palpation: is normal, no crepitus, no tenderness. 17:15 Cardiovascular: Rate: normal, Rhythm: regular, Edema: is not appreciated, JVD: is not appreciated. 17:15 Respiratory: moderate respiratory distress is noted, Respirations: shallow respirations, that is moderate, Breath sounds: decreased breath sounds, that are moderate, throughout, stridor, is not appreciated, wheezing: is not appreciated. 17:15 Abdomen/GI: Inspection: scaphoid, Bowel sounds: active, all quadrants, Palpation: soft, in all quadrants, mild abdominal tenderness, in all quadrants, rebound tenderness, is not appreciated, involuntary guarding, is not appreciated. 17:15 Back: vertebral tenderness, is not appreciated. 17:15 Musculoskeletal/extremity: Exam is negative for decreased range of motion, deformity. 17:15 Skin: cellulitis, is not appreciated, soft ball size early stage pressure ulcer coccyx area. 17:15 Neuro: Orientation: to person, Mentation: able to follow commands, slow to respond, Cerebellar function: unable to test, Motor: moves upper extremities. Vital Signs: 17:09 BP 94 / 82; Pulse 66; Resp 16 S; Pulse Ox 90% on R/A; iw 17:13 BP 88 / 72; Pulse 64; Resp 21 S; Pulse Ox 84% on R/A; Weight 45.36 kg (R); iw 18:48 Temp 88.3(R); iw 19:16 BP 94 / 61; Pulse 56; Resp 21; Temp 83.6(C); Pulse Ox 100% ; kd3 20:02 BP 117 / 80; Pulse 56; Resp 21; Temp 83.7; Pulse Ox 100% on BiPAP; kd3 20:46 BP 81 / 61; Pulse 63; Resp 24; Temp 84.8; Pulse Ox 100% ; mw2 21:02 BP 57 / 58; Pulse 65; Resp 24; Pulse Ox 99% on BiPAP; kd3 21:11 BP 143 / 95; Pulse 67; Resp 22; Temp 86.2(C); Pulse Ox 99% on BiPAP; kd3 22:08 BP 78 / 60; Pulse 80; Resp 23; Temp 89.9; Pulse Ox 96% on 40% BiPAP; kd3 22:21 BP 87 / 68; Pulse 91; Resp 25; Temp 90.7(C); Pulse Ox 94% on 40% BiPAP; kd3 22:48 BP 70 / 53; Pulse 96; Resp 25; Temp 92.2; Pulse Ox 90% on 40% BiPAP; kd3 22:56 BP 72 / 59; Pulse 100; Resp 22; Temp 92.6(C); Pulse Ox 89% on 40% BiPAP; kd3 23:02 BP 95 / 72; Pulse 102; Resp 19; Pulse Ox 89% on 40% BiPAP; kd3 Procedures: 20:10 Central Line: the site was prepped with Betadine, in sterile fashion, a triple lumen cp catheter was inserted, in the right femoral vein, in 1 attempts. placement was verified, by blood return, the site was dressed with using sterile technique, the patient tolerated the procedure, well. MDM: 19:15 Data reviewed: vital signs, nurses notes, lab test result(s), EKG, radiologic studies, cp CT scan, plain films. 19:15 Test considered but Not performed: MRI: brain. Historians other than the Patient: EMS: cp transporting services provide initial HPI. Spouse/Significant Other: provides additional HPI. ED course: Patient qualifies for sever sepsis with shock. A) source of infection is urine. B) SIRS: HR >90, hypothermia. C) Patient requiring BIPAP, 2 systolic pressures less than 90. 19:19 Patient medically screened. cp 20:30 Post IV fluid administration reassessment for Sepsis: Client prescribed 30 mL/kg IVF. Sepsis focused reassessment complete. Heart: Regular rate/rhythm noted. Lungs: Noted to be clear bilaterally. Other: blood pressure improved. 20:30 Management of patient was discussed with the following: Hospitalist: Tiara Denny NP cp who requests transfer after discussion for ICU services. 08/27 17:01 Order name: Basic Metabolic Panel; Complete Time: 18:21 ms3 08/27 17:01 Order name: CBC with Diff; Complete Time: 18:21 ms3 08/27 17:01 Order name: Troponin HS; Complete Time: 18:21 ms3 08/27 17:01 Order name: CK; Complete Time: 18:21 ms3 08/27 18:33 Interpretation: Abnormal: CPK 297. 08/27 17:02 Order name: Urine Microscopic Only; Complete Time: 19:49 ms3 08/27 19:49 Interpretation: Normal except: UBACT 20-50. 08/27 17:04 Order name: Lactate w/ 2H reflex if indic.; Complete Time: 18:21 08/27 17:04 Order name: Blood Culture Adult (2) 08/27 17:04 Order name: ETOH Level; Complete Time: 19:49 08/27 17:04 Order name: UDS; Complete Time: 19:49 08/27 17:04 Order name: LFT's; Complete Time: 19:51 08/27 17:04 Order name: Ptt, Activated 08/27 17:04 Order name: PT-INR 08/27 17:39 Order name: Glucose, Ancillary Testing; Complete Time: 17:40 EDMS 08/27 17:40 Interpretation: Reviewed. 08/27 17:56 Order name: CBC Smear Scan; Complete Time: 18:21 EDMS 08/27 17:01 Order name: XRAY Chest (1 view); Complete Time: 18:31 ms3 08/27 18:32 Interpretation: Report review. 08/27 17:40 Order name: CT Traumagram (Head C Spine CAP wo con); Complete Time: 18:31 08/27 18:32 Interpretation: Report reviewed. 08/27 17:59 Order name: COVID-19/FLU A+B; Complete Time: 19:49 cp 08/27 19:02 Order name: Urine Dipstick-Ancillary; Complete Time: 19:49 EDMS 08/27 19:31 Order name: ABG; Complete Time: 19:49 mw2 08/27 20:12 Order name: Blood Culture EDMS 08/27 20:12 Order name: Blood Culture EDMS 08/27 20:13 Order name: US Rp Exam Limited; Complete Time: 21:04 sb4 08/27 21:04 Interpretation: Report reviewed. cp 08/27 20:46 Order name: Lactate Sepsis 2 HR Follow-up; Complete Time: 20:50 EDMS 08/27 23:17 Order name: BIPAP mw2 08/27 17:01 Order name: EKG; Complete Time: 17:02 ms3 08/27 17:01 Order name: Cardiac monitoring; Complete Time: 19:10 ms3 08/27 17:01 Order name: EKG - Nurse/Tech; Complete Time: 19:10 ms3 08/27 17:01 Order name: IV Saline Lock; Complete Time: 19:10 ms3 08/27 17:01 Order name: Labs collected and sent; Complete Time: 19:10 ms3 08/27 17:01 Order name: O2 Per Protocol; Complete Time: 19:10 ms3 08/27 17:01 Order name: O2 Sat Monitoring; Complete Time: 19:10 ms3 08/27 17:02 Order name: Urine Dipstick-Ancillary (obtain specimen); Complete Time: 19:10 ms3 08/27 17:04 Order name: Pedroza; Complete Time: 19:10 cp 08/27 17:12 Order name: Oxygen Per Protocol; Complete Time: 17:15 cp 08/27 19:54 Order name: Restrain Patient; Complete Time: 20:00 cp EC:13 Rate is 64 beats/min. Rhythm is regular. IL interval is normal. QRS interval is normal. cp QT interval is prolonged at 532 msec. Interpreted by me. Reviewed by me. Administered Medications: 18:50 Drug: NS 0.9% 500 ml Route: IV; Rate: bolus; Site: right forearm; iw 20:12 Follow up: IV Status: Completed infusion kd3 19:00 Drug: NARcan (naloxone) 0.4 mg Route: IVP; Site: right antecubital; ss 19:19 Follow up: Response: No change in condition ss 19:10 Drug: NS 0.9% (30 ml/kg) 30 ml/kg Route: IV; Rate: bolus; Site: right antecubital; iw 20:12 Follow up: IV Status: Completed infusion; IV Intake: 1500ml kd3 20:12 Drug: Rocephin - (cefTRIAXone) 1 grams Route: IVPB; Infused Over: 30 mins; Site: right kd3 antecubital; 22:19 Follow up: Response: No adverse reaction; IV Status: Completed infusion kd3 21:01 Drug: Norepinephrine 0.1 mcg/kg/min Route: IV; Rate: calculated rate; Site: right kd3 femoral; 21:01 Follow up: Rate change 5 mcg/min kd3 21:02 Follow up: Rate change 10 mcg/min kd3 21:17 Follow up: Rate change 0.1 mcg/kg/min kd3 22:08 Follow up: Rate change 0.15 mcg/kg/min kd3 22:49 Follow up: Rate change 0.25 mcg/kg/min kd3 22:57 Follow up: Rate change 15 mcg/min kd3 23:18 Follow up: IV Status: Infusion continued kd3 22:08 Drug: NS 0.9% 1000 ml Route: IV; Rate: 150 ml/hr; Site: right femoral; kd3 23:17 Follow up: IV Status: Infusion continued kd3 Disposition: 18:51 Co-signature as Attending Physician, Carlos A CALERO was immediately available on-site ms3 in the Emergency Department for consultation in the care of the patient. 08/28 20:05 Critical Care:. cp Disposition Summary: 08/27/22 21:26 Transfer Ordered Transfer Location: [facility] cp Reason: Higher level of care cp Condition: Critical(08/27/22 21:26) cp Problem: new(08/27/22 21:26) cp Symptoms: have improved(08/27/22 21:26) cp Accepting Physician: Steffanie(08/27/22 23:18) kd3 Diagnosis - Severe sepsis with septic shock(08/27/22 21:26) cp - UTI/ Urinary tract infection, site not specified(08/27/22 21:26) cp - Acidosis cp - Altered mental status, unspecified(08/27/22 21:26) cp Forms: - Medication Reconciliation Form cp - SBAR form cp Critical care time excluding procedures: 20:05 Critical care time: Bedside Care: 10 minutes, Consultation: 30 minutes, Family cp Intervention: 10 minutes. Total time: 50 minutes Signatures: Dispatcher [employer] EDMS Gloria Ortiz, RN RN Zoe Cortes RN RN ss Panda Edmonds, PA PA cp Carlos A Peters, DO ms3 Joann Conte RN RN kd3 Pamela Denny, PA-C PA-C sb4 Corrections: (The following items were deleted from the chart) 08/27 17:43 17:19 Head C Spine Cap W Con ordered. EDMS EDMS 17:51 17:06 Head C Spine MPR Wo Con+CT.RAD.BRZ ordered. EDMS EDMS 21:25 19:54 Inpatient Admission cp cp 21:25 19:54 Wilber Murguia cp cp 21:25 19:54 Intensive Care Unit cp cp 21:25 19:54 Serious cp cp 21:25 19:54 new cp cp 21:25 19:54 have improved cp cp 21:25 19:54 Standard cp cp 21:25 19:54 cp cp 21:25 19:54 Severe sepsis with septic shock cp cp 21:25 19:54 UTI/ Urinary tract infection, site not specified cp cp 21:25 19:54 Altered mental status, unspecified cp cp 21:25 19:55 Acute kidney failure, unspecified cp cp 23:18 21:26 [place] cp kd3
--- NOTE | 2022-08-27 19:55 | ER ---
Nurse's Notes [facility] Name: Carla Cohen Age: 61 yrs Sex: Female : 1960 Arrival Date: 08/27/2022 Time: 17:00 Bed 4 Private MD: Diagnosis: Severe sepsis with septic shock;UTI/ Urinary tract infection, site not specified;Acidosis;Altered mental status, unspecified Presentation: 08/27 17:00 Chief complaint: EMS states: found by ex- on the floor of her home , last seen iw normal 4-5 days ago , pt appears altered , trying to communicate but difficult to understand, swatting at EMS,unable to get a temp, was 92% on RA, all other VSS. Coronavirus screen: Client presents with at least one sign or symptom that may indicate coronavirus-19. Ebola Screen: Patient negative for fever greater than or equal to 101.5 degrees Fahrenheit, and additional compatible Ebola Virus Disease symptoms Patient denies exposure to infectious person. Patient denies travel to an Ebola-affected area in the 21 days before illness onset. No symptoms or risks identified at this time. Risk Assessment: Do you want to hurt yourself or someone else? Patient reports no desire to harm self or others. Unable to obtain. Onset of symptoms was August 27, 2022. 17:00 Method Of Arrival: EMS: [facility] iw 17:00 Acuity: DAI 2 iw 17:49 Initial Sepsis Screen: Does the patient meet any 2 criteria? Temp <36.0*C (96.8*F)) or iw > 38.3*C (100.9*F). Altered Mental Status. Does the patient have a suspected source of infection? No. Patient's initial sepsis screen is negative. Historical: - Allergies: 17:02 NKDA; iw - Home Meds: 17:02 amlodipine 10 mg tab 1 tab once daily [Active]; carvedilol 25 mg Oral tab 1 tab 2 times iw per day [Active]; doxazosin 2 mg Oral tab 1 tab once daily [Active]; furosemide 20 mg Oral tab 1 tab once daily [Active]; hydrocodone-acetaminophen 10-325 mg Oral tab every 6 hours [Active]; meloxicam 7.5 mg Oral tab 1 tab once daily [Active]; montelukast 10 mg Oral tab 1 tab once daily [Active]; Potassium Chloride Oral [Active]; - PMHx: 17:02 Arthritis; Hypertension; iw - PSHx: 17:02 Zan hip replacements; iw - Immunization history:: Adult Immunizations up to date. - Social history:: Smoking status: Patient reports the use of cigarette tobacco products, smokes one-half pack cigarettes per day. Screenin:21 [facility] ED Fall Risk Assessment (Adult) History of falling in the last 3 months, iw including since admission Yes- single mechanical fall (1 pt) Confusion or Disorientation Yes (5 pts) Intoxicated or Sedated No (0 pts) Impaired Gait No (0 pts) Mobility Assist Device Used No (0 pt) Altered Elimination Yes (1 pt) Score/Fall Risk Level 3 or more points = High Risk. Tuberculosis screening: No symptoms or risk factors identified. 17:30 Abuse screen: Denies threats or abuse. Denies injuries from another. iw 21:12 Nutritional screening:. kd3 Assessment: 17:30 General: Appears ill, unkempt, malnourished, Behavior is listless. Pain: Unable to use iw pain scale. Patient is unresponsive. Neuro: Graves Agitation-Sedation Scale (RASS): +1 Restless Level of Consciousness is listless. Cardiovascular: Capillary refill is > 3 seconds in bilateral fingers Rhythm is regular. Respiratory: Respiratory effort is labored, shallow, Respiratory pattern is regular. GI: Abdomen is flat, non-distended. Derm: Skin is fragile, is thin, Skin is Skin is pale, Skin temperature is cold. Musculoskeletal: 17:47 Reassessment: pt is difficult stick, lab called for assistance obtaining remaining iw labs, pt transported to CT via stretcher, on O2. 18:30 Reassessment: pt cleaned of incontinence. iw 18:48 Reassessment: matamoros in place, rectal temp 88.3 , pt placed on Zoe Anglin RN iw at bedside for US IV. 19:16 General: Appears ill, malnourished, Behavior is listless. Neuro: Level of Consciousness kd3 is listless. Respiratory: Patient placed on BiPAP:. 19:18 General: pt placed under warming methods. yunier hugger and blankets. kd3 22:21 General: this RN called report to JOSE JUAN Guerra at [facility]. kd3 08/28 06:24 Reassessment: [facility] notified and preliminary blood culture report results bb called to Mari MANZANO. Vital Signs: 08/27 17:09 BP 94 / 82; Pulse 66; Resp 16 S; Pulse Ox 90% on R/A; iw 17:13 BP 88 / 72; Pulse 64; Resp 21 S; Pulse Ox 84% on R/A; Weight 45.36 kg (R); iw 18:48 Temp 88.3(R); iw 19:16 BP 94 / 61; Pulse 56; Resp 21; Temp 83.6(C); Pulse Ox 100% ; kd3 20:02 BP 117 / 80; Pulse 56; Resp 21; Temp 83.7; Pulse Ox 100% on BiPAP; kd3 20:46 BP 81 / 61; Pulse 63; Resp 24; Temp 84.8; Pulse Ox 100% ; mw2 21:02 BP 57 / 58; Pulse 65; Resp 24; Pulse Ox 99% on BiPAP; kd3 21:11 BP 143 / 95; Pulse 67; Resp 22; Temp 86.2(C); Pulse Ox 99% on BiPAP; kd3 22:08 BP 78 / 60; Pulse 80; Resp 23; Temp 89.9; Pulse Ox 96% on 40% BiPAP; kd3 22:21 BP 87 / 68; Pulse 91; Resp 25; Temp 90.7(C); Pulse Ox 94% on 40% BiPAP; kd3 22:48 BP 70 / 53; Pulse 96; Resp 25; Temp 92.2; Pulse Ox 90% on 40% BiPAP; kd3 22:56 BP 72 / 59; Pulse 100; Resp 22; Temp 92.6(C); Pulse Ox 89% on 40% BiPAP; kd3 23:02 BP 95 / 72; Pulse 102; Resp 19; Pulse Ox 89% on 40% BiPAP; kd3 ED Course: 17:00 Patient arrived in ED. iw 17:00 Carlos A Peters DO is Attending Physician. ms3 17:01 Panda Edmonds PA is PHCP. cp 17:02 Triage completed. iw 17:02 Arm band placed on. iw 17:13 Gloria Ortiz, RN is Primary Nurse. iw 17:21 No provider procedures requiring assistance completed. iw 17:46 Missed attempt(s): 24 gauge in right forearm. Bleeding controlled, band aid applied, iw catheter tip intact. Inserted saline lock: 24 gauge in right forearm, using aseptic technique. Oxygen administration via nasal cannula \T\ 5L/min. 17:56 CT Traumagram (Head C Spine CAP wo con) In Process Unspecified. EDMS 18:16 XRAY Chest (1 view) In Process Unspecified. EDMS 18:49 Patient has correct armband on for positive identification. Placed in gown. Bed in low iw position. Call light in reach. Side rails up X2. 18:50 COVID-19/FLU A+B Sent. iw 18:50 Inserted saline lock: 20 gauge in right antecubital area, using aseptic technique. ss ,using aseptic technique. US guided Blood collected. 19:18 Matamoros cath inserted, using sterile technique, by ED staff. kd3 19:53 Wilber Murguia is Hospitalizing Provider. cp 20:13 Blood Culture Sent. kd3 20:13 Blood Culture Sent. kd3 20:13 Assisted provider with central line placement. Set up central line tray. Triple lumen kd3 line placed in right femoral. Line placed by Panda ATKINSON Placement verified by blood return, Dressed with Tegaderm, Blood was collected. Patient tolerated well. 20:33 US Rp Exam Limited In Process Unspecified. EDMS 20:36 initiated a transfer with Yola from [facility] Transfer [facility]. mw2 21:17 connected Panda ATKINSON with the Setup Technician from [facility]. mw2 23:04 Patient transferred, IV remains in place. kd3 Administered Medications: 18:50 Drug: NS 0.9% 500 ml Route: IV; Rate: bolus; Site: right forearm; iw 20:12 Follow up: IV Status: Completed infusion kd3 19:00 Drug: NARcan (naloxone) 0.4 mg Route: IVP; Site: right antecubital; ss 19:19 Follow up: Response: No change in condition ss 19:10 Drug: NS 0.9% (30 ml/kg) 30 ml/kg Route: IV; Rate: bolus; Site: right antecubital; iw 20:12 Follow up: IV Status: Completed infusion; IV Intake: 1500ml kd3 20:12 Drug: Rocephin - (cefTRIAXone) 1 grams Route: IVPB; Infused Over: 30 mins; Site: right kd3 antecubital; 22:19 Follow up: Response: No adverse reaction; IV Status: Completed infusion kd3 21:01 Drug: Norepinephrine 0.1 mcg/kg/min Route: IV; Rate: calculated rate; Site: right kd3 femoral; 21:01 Follow up: Rate change 5 mcg/min kd3 21:02 Follow up: Rate change 10 mcg/min kd3 21:17 Follow up: Rate change 0.1 mcg/kg/min kd3 22:08 Follow up: Rate change 0.15 mcg/kg/min kd3 22:49 Follow up: Rate change 0.25 mcg/kg/min kd3 22:57 Follow up: Rate change 15 mcg/min kd3 23:18 Follow up: IV Status: Infusion continued kd3 22:08 Drug: NS 0.9% 1000 ml Route: IV; Rate: 150 ml/hr; Site: right femoral; kd3 23:17 Follow up: IV Status: Infusion continued kd3 Medication: 17:48 VIS not applicable for this client. iw Intake: 20:00 IV: 1500ml (IV Fluid); Total: 1500ml. kd3 20:12 IV: 1500ml; Total: 3000ml. kd3 Output: 20:00 Urine: 1800ml (Matamoros); Total: 1800ml. kd3 Outcome: 19:54 Decision to Hospitalize by Provider. cp 21:26 ER care complete, transfer ordered by MD. cp 23:03 Transferred by ground EMS kd3 23:03 Condition: stable 23:03 Discharge instructions given to patient, Instructed on the need for transfer. 23:18 Patient left the ED. kd3 Signatures: Dispatcher [employer] EDMS Lyndsay Navarro RN RN bb Williams, Irene, RN RN iw Zoe Xavier RN RN ss Page, Corey, [place] PA cp Jasmina Gregory mw2 Carlos A Peters DO DO ms3 Joann Conte RN RN kd3 Corrections: (The following items were deleted from the chart) 17:15 17:13 BP 88 / 72; Pulse 64bpm; Resp 21bpm; Spontaneous; Pulse Ox 84% RA; iw iw 08/28 06:28 06:24 Reassessment: [facility] notified and preliminary blood culture report faxed [id number]
[2022-08-27] MEDS ORDERED: CEFTRIAXONE 1000 MG/VIAL ONE (20:03)
[2022-08-27] MEDS ORDERED: NA CHLORIDE 0.9% 50 ML IV ONE (20:04)
--- NOTE | 2022-08-27 21:02 | RAD REPORT ---
EXAM DESCRIPTION: US - Renal Ultrasound-Limited - 08/27/2022 8:31 pm CLINICAL HISTORY: Hydronephrosis COMPARISON: CT abdomen August 27, 2022 FINDINGS: The right kidney measures 8 centimeters with a borderline increased echotexture A 1 centimeter cyst No hydronephrosis IMPRESSION: Right hydronephrosis has resolved
[2022-08-27 21:25] LABS: Protime INR 1.17
[2022-08-28 01:37] VITALS: TEMP 92.6; O2SAT 89
[2022-08-28 01:38] VITALS: BP 95/72
== END 2022-08-27 23:18 | disposition short-term general hospital (02) ==
LOC: ER 16:54
PROC: 06HM33Z Insertion of Infusion Device into Right Femoral Vein, Percutaneous Approach (ICD-10-PCS; principal; 2022-08-27)
DX: N39.0 Urinary tract infection, site not specified (principal); R65.21 Severe sepsis with septic shock; E87.20 Acidosis, unspecified; I10 Essential (primary) hypertension; F17.210 Nicotine dependence, cigarettes, uncomplicated; Z96.643 Presence of artificial hip joint, bilateral; Z20.822 Contact with and (suspected) exposure to COVID-19
CPT/HCPCS: 87040 ×3; 85025; 80048; 36415; 82550; 87205 ×4; 85610; 82565; 82947; 80076; 83605 ×2; 85730; 84484; 0240U; 80307; 70450; 71250; 72125; 71045; 76775; 82805; 94660; 51702; 99291; 99292; 36556; J2310; J7040; J7030 ×2; G0480; 81003; 81015